=== PATIENT | female | born 2005 | race Caucasian/White ===

== ENCOUNTER 2023-04-17 23:31 | Emergency (ER) | payer SELFPAY ==
[2023-04-17] VITALS (8 sets, daily range): BP systolic 134–142; BP diastolic 58–81; PULSE 80–100; RESP 17–19; TEMP 36.4; O2SAT 98
--- NOTE | 2023-04-17 23:00 | RT.EKG_ITS ---
APPROVED REPORT Exam: Resting ECG Reason for Exam: syncopal episode Patient Location: E HR:81 bpm ECG Measurements Heart Rate 81 AXIS VT 135 P 14 QRSd 78 QRS 68 QT 360 T 13 QTc 417 Conclusion Sinus rhythm... V-rate 60- 99 No indication of Brugada, long QT, WpW, HOCM, or ARVD.
--- NOTE | 2023-04-17 23:26 | ED.GENADUL_ITS ---
HPI General Mode of arrival: EMS . Date/Time Provider Initiated Documentation: 04/17/23 23:33 . Limitations to Documentation: no limitations . Information obtained by: patient and family . HPI Narrative: 17yo previously healthy female presenting for nausea, vomiting, and syncope. [place] normal this morning. This evening at the gym was swimming in a cold pool and then got in the hot tub; began to feel nauseated and unwell like she was going to pass out. Sat on the toilet fully dressed; thinks she may have lost conciousness then. Did not fall or strike her head. After this she and her fiancee went to [place]; while in the car she again felt nauseated and unwell, vomited (non-bloody non bilious), and then passed out. This was witnessed by her fiancee; she was out for less than a minute. No abnormal movements noted. Was alert and acting normal when she regained consciousness. Patient reports feeling some shortness of breath when she regained consciousness, none currently. She is otherwise in her usual state of health with no fevers, chills, rash, abdominal pain, diarrhea, numbness, focal weakness, tingling, dysuria, hematuria, flank pain, back pain, or other concern s. Related Data Home Medications Medication Instructions Recorded Confirmed bisacodyl 5 mg tablet,delayed 5 mg PO DAILY #30 tab-caps 01/21/17 04/18/23 release (Dulcolax (bisacodyl)) polyethylene glycol 3350 17 17 gm PO BID #255 grams 01/21/17 04/18/23 gram/dose oral powder ondansetron HCl 4 mg tablet 4 mg PO Q8H PRN #10 tabs 04/18/23 Previous Rx's Medication Instructions Recorded bisacodyl 5 mg tablet,delayed 5 mg PO DAILY #30 tab-caps 01/21/17 release (Dulcolax (bisacodyl)) polyethylene glycol 3350 17 17 gm PO BID #255 grams 01/21/17 gram/dose oral powder ondansetron HCl 4 mg tablet 4 mg PO Q8H PRN #10 tabs 04/18/23 Allergies Allergy/AdvReac Type Severity Reaction Status Date / Time strawberry Allergy Unknown Hives Unverified 04/18/23 02:43 General Stated Complaint: GenMedical YAMINI: 3 Review of Systems Narrative: see HPI Exam Narrative Exam Narrative: General: Alert, well appearing, well nourished, in no acute distress. Head: Normocephalic, atraumatic Neck: Trachea midline, ?Neck supple. ENT: ?MMM.? Cardiac: ?RRR, no murmurs appreciated Resp: No respiratory distress. CTAB. Abd: ?Soft, non-distended, nontender : ?No suprapubic tenderness. Extremities: ?No deformities.? No peripheral edema. Neurologic: GCS 15. ? Motor- 5/5 strength symmetric bilateral upper and lower extremities Sensation- ?Intact to light touch and symmetric multiple dermatomes including upper and lower extremities Coordination- No dysmetria on finger to nose Gait/station: ?Normal stance.? No truncal ataxia. Steady gait with equal normal steps Course Vital Signs Vital signs: Vital Signs Temperature 36.4 C L 04/17/23 23:17 Pulse 98 H 04/17/23 23:17 Respiratory Rate 18 04/17/23 23:17 Blood Pressure 142/58 H 04/17/23 23:17 Pulse Oximetry 98 04/17/23 23:17 Temperature 36.4 C L 04/17/23 23:17 Pulse 98 H 04/17/23 23:17 Respiratory Rate 18 04/17/23 23:21 Respiratory Effort Normal, Short of Breath 04/17/23 23:21 Blood Pressure 142/58 H 04/17/23 23:17 Pulse Oximetry 98 04/17/23 23:17 Oxygen Delivery Method Room Air 04/17/23 23:17 Oxygen Flow Rate 0 04/17/23 23:17 Pain Level 4 04/17/23 23:17 Medical Decision Making 17yo previously healthy female presenting for nausea, vomiting, and syncope. History from patient, fiancee at bedside, and EMS. Symptoms started this ju[place] after transferring from cold pool to hot tub; felt nauseated and then may have passed out while sitting on the toilet. Had a second episode shortly after, went to [facility] and then felt unwell in the car, vomited, and lost consciousness for ~ 1 minute. No abnormal movements to suggest seizure, was not post-ictal upon regaining consciousness. Normal blood glucose and vital signs for EMS. Reassuring vital signs on arrival, normal physical exam. No abdominal tenderness to suggest obstruction or surgical intraabdominal process; would not get CT imaging. orthostatic vital signs normal. Given zofran, 1L IVFB. -EKG NSR, no indication of Brugada, long QT, HOCM, or ARVD. No short IA or widened QRS to suggest WpW, no clear delta wave. No family history of sudden unexpected at a young age. -CXR independently reviewed, no focal pneumonia or pneumothorax on my view, agree with radiology read below. -Labs reviewed as below CBC with leukocytosis to 15, and no anemia, CMP with no electrolyte abnormalities, d-dimer normal (would not further pursue pulmonary embolism with CT imaging), negative. UA not infected. Troponin negative x 2. On reassessment she remains non-toxic appearing with reassuring vital signs. Slightly low blood pressure (90's/70's)) while sleeping, not concerning. PO challenged and tolerate well with no further vomiting. Ambulated steadily independently in the department. Reports feeling much better, just tired. Unclear precipitant of symptoms but with reassuring workup here unlikely to be serious cardiac/cardiovascular/neurologic pathology. Will discharge with short of course of zofrran for the event this is acute gastroenteritis. Appropriate for PCP followup; will defer decisions regarding further testing or cardiology referral to PCP. Discharged home; discharge instructions and return precautions were reviewed with patient who verbalized understanding. All questions were answered and she is in full agreement with the plan. Imaging Data Radiologic Study: Imaging: X-Ray Radiologist's impression: IMPRESSION: No acute findings. Lab Data Lab results reviewed: Yes I reviewed the patient's lab results. Labs: Laboratory Tests Range/Units 04/17/23 04/18/23 04/18/23 23:40 00:44 02:35 WBC (4.4-10.8) 10^3/uL 15.58 H RBC (3.93-5.22) 10^6/uL 5.14 Hgb (11.2-15.7) g/dL 12.4 Hct (36.0-46.0) % 38.7 MCV (80-95) fL 75 L MCH (27.0-33.0) pg 24.1 L MCHC (32.0-36.0) % 32.0 RDW (11.7-14.6) % 14.5 Plt Count (130-400) 10^3/uL 476 H MPV (8.0-11.0) fL 8.7 Immature Gran % 0.3 Neutrophils % 76.0 Lymphocytes % 17.2 Monocytes % 6.0 Eosinophils % 0.2 Basophils % 0.3 Nucleated RBC % (0.0-0.3) % 0.0 Absolute Neutrophils (1.2-6.7) 10^3/uL 11.84 H Absolute Lymphocytes (1.2-3.4) 10^3/uL 2.68 Absolute Monocytes (0.1-0.8) 10^3/uL 0.93 H Absolute Eosinophils (0.0-0.7) 10^3/uL 0.03 Absolute Basophils (0.0-0.2) 10^3/uL 0.05 D-Dimer (<500) ng/mlFEU 326 Sodium (136-145) mmol/L 139 Potassium (3.5-5.1) mmol/L 3.8 Chloride (98-107) mmol/L 104 Carbon Dioxide (21.0-32.0) mmol/L 24.2 Anion Gap (3-11) mmol/L 10.8 BUN (7-18) mg/dL 12 Creatinine (0.55-1.02) mg/dL 0.8 Est GFR (CKD-EPI 2020) (mL/min/1.73m2) 108.78 Glucose (74-106) mg/dL 116 H Calcium (8.5-10.1) mg/dL 9.5 Magnesium (1.8-2.4) mg/dL 1.9 Total Bilirubin (0.2-1.0) mg/dL 0.3 AST (15-37) U/L 13 L ALT (14-59) U/L 21 Alkaline Phosphatase (46-116) U/L 75 Troponin I (< or =60) ng/L < 50 < 50 Total Protein (6.4-8.2) g/dL 8.2 Albumin (3.4-5.0) g/dL 3.4 Beta HCG, Quant (1-3) mIU/mL < 1 L Urine Color (Yellow) Yellow Urine Clarity (Clear) Sl Cloudy Urine pH (5-8) 6.0 Ur Specific [place] (1.005-1.025) >= 1.030 H Urine Protein (Negative) mg/dL Negative Urine Ketones (Negative) mg/dL Negative Urine Blood (Negative) Negative Urine Nitrite (Negative) Negative Urine Bilirubin (Negative) Negative Urine Urobilinogen (Up to 0.2) mg/dL 1.0 H Ur Leukocyte Esterase (Negative) Negative Urine Glucose (Negative) mg/dL Negative Quality:SDOH Health Related Social Needs: No Data to Display PFSH All Active Problems (Updated 04/18/23 @ 02:32 by Azul Yancey MD) Syncope (Chronic) Encoporesis (Active) Constipation (Active 08/15/12) Social History Smoking/Tobacco Use Status: Never Smoking risk assessment performed?: Yes Drug use: Never Substance use type: does not use Do you feel safe at home: Yes Do you feel safe in your relationship?: Yes Discharge Plan Disposition Patient Disposition: Home Condition: Good Discharge Details Clinical Impression: Syncope Primary Care Provider: Unknown,Unknown ED Provider: Azul Yancey Home Meds and New Rx's Prescriptions: New ondansetron HCl 4 mg tablet 4 mg PO Q8H PRNQty: 10 0RF Continued bisacodyl [Dulcolax (bisacodyl)] 5 MG tablet,delayed release (DR/EC) 5 mg PO DAILY Qty: 30 2RF Rx Instructions: take 1 tab PO daily after school polyethylene glycol 3350 255 GM powder 17 gm PO BID Qty: 255 4RF Rx Instructions: mix 1 cap in 6-8 oz of fluid and take PO BID Discharge Instructions Instructions: Syncope (ED) Additional Instructions: You can take zofran as needed for nausea; follow the directions on the bottle. Call your primary care doctor today to schedule an appointment within the next 48 hours to followup on your visit today. Return to the emergency department for new or worsening symptoms including inability to keep down fluids, chest pain, difficultly breathing, or if you pass out again.
--- NOTE | 2023-04-17 23:30 | DI.RAD_ITS ---
Exam(s) XR CHEST 2V PA LATERAL EXAM: XR CHEST 2V PA LATERAL CLINICAL HISTORY: chest pain. TECHNIQUE: 2D digital imaging was performed. COMPARISON: CR CHEST 2 VIEWS PA,LAT from 01/22/2017 FINDINGS: 2 views: Heart size is normal. The mediastinum is not widened. Lungs are clear. No infiltrates nor pleural effusions. IMPRESSION: No acute pulmonary findings. DATA REPOSITORY: RADIATION DOSE DELIVERED:
[2023-04-17 23:50] LABS: Abs Immature Grans 0.04 10^3/uL (0.0-0.06); Absolute Eosinophil Count 0.03 10^3/uL (0.0-0.7); Absolute Lymphocyte Count 2.68 10^3/uL (1.2-3.4); Absolute Monocyte Count 0.93 10^3/uL (0.1-0.8); Basophils % 0.3; Eosinophils % 0.2; HCT 38.7 % (36.0-46.0); HGB 12.4 g/dL (11.2-15.7); Immature Grans % 0.3; Lymphocytes % 17.2; MCH 24.1 pg (27.0-33.0); MCV 75 fL (80-95); MPV 8.7 fL (8.0-11.0); Platelet Count 476 10^3/uL (130-400); RBC 5.14 10^6/uL (3.93-5.22); RDW 14.5 % (11.7-14.6); RDW-SD 38.8 fL; WBC 15.58 10^3/uL (4.4-10.8)
[2023-04-17 23:51] LABS: Absolute Basophil Count 0.05 10^3/uL (0.0-0.2); Absolute Neutrophil Count 11.84 10^3/uL (1.2-6.7)
[2023-04-18] VITALS (28 sets, daily range): BP systolic 97–157; BP diastolic 57–93; PULSE 77–104; RESP 1–28; TEMP 36.4; O2SAT 98
[2023-04-18] MEDS: Ondansetron 4 MG/2 ML VIAL IVP (00:05)
[2023-04-18] MEDS: Normal Saline 1,000 ML 1000 ML IV (00:05)
--- NOTE | 2023-04-18 00:11 | DI.VRAD_ITS ---
PROCEDURE INFORMATION: Exam: XR Chest Exam date and time: 04/17/2023 11:48 PM Age: 17 years old Clinical indication: Chest wall pain TECHNIQUE: Imaging protocol: Radiologic exam of the chest. Views: 2 views. COMPARISON: CR CHEST 2 VIEWS PA,LAT 01/22/2017 12:59 AM FINDINGS: Lungs: Unremarkable. No consolidation. Pleural spaces: Unremarkable. No pleural effusion. No pneumothorax. Heart/Mediastinum: Unremarkable. No cardiomegaly. Bones/joints: Unremarkable. IMPRESSION: No acute findings. Dictated and Authenticated by: Jam Smith MD. Ordering:OLU Liang MD
[2023-04-18 00:40] LABS: ALT 21 U/L (14-59); AST 13 U/L (15-37); Albumin 3.4 g/dL (3.4-5.0); Alkaline Phosphatase 75 U/L (46-116); Anion Gap 10.8 mmol/L (3-11); BUN 12 mg/dL (7-18); Bilirubin, Total 0.3 mg/dL (0.2-1.0); CO2 24.2 mmol/L (21.0-32.0); CREATININE 0.8 mg/dL (0.55-1.02); Calcium 9.5 mg/dL (8.5-10.1); Chloride 104 mmol/L (98-107); Estimated GFR 108.78 (mL/min/1.73m2); Glucose 116 mg/dL (74-106); Magnesium 1.9 mg/dL (1.8-2.4); Potassium 3.8 mmol/L (3.5-5.1); Sodium 139 mmol/L (136-145); Total Protein 8.2 g/dL (6.4-8.2)
[2023-04-18 00:41] LABS: Troponin I < 50 ng/L (< or =60)
[2023-04-18 00:44] LABS: HCG Quant, Pregnancy < 1 mIU/mL (1-3)
[2023-04-18 00:51] LABS: Bilirubin Negative (Negative); Blood Negative (Negative); Clarity Sl Cloudy (Clear); Glucose Negative (Negative); Ketones Negative (Negative); Leukocyte Esterase Negative (Negative); Nitrite Negative (Negative); Specific Gravity >= 1.030 (1.005-1.025)
[2023-04-18 00:54] LABS: D-Dimer 326 ng/mlFEU (<500)
[2023-04-18 02:58] LABS: Troponin I < 50 ng/L (< or =60)
== END 2023-04-18 03:23 | disposition home or self-care (01) ==
LOC: ER 04-18 03:35
PROVIDERS: Emergency Provider Student in an Organized Health Care Education/Training Program
DX: R11.2 Nausea with vomiting, unspecified (principal); R55 Syncope and collapse; R94.31 Abnormal electrocardiogram [ECG] [EKG]
CPT/HCPCS: 80053; 82962; 93005; 96361; 96374; 99285; 71046; 81003; 83735; 84484; 84702; 85025; 85379; 93010; 99284; J2405

== ENCOUNTER 2023-05-05 01:14 | Emergency (ER) | payer SELFPAY ==
[2023-05-05 01:22] VITALS: BP 128/66; PULSE 100; RESP 16; TEMP 36.8; O2SAT 97
[2023-05-05 01:49] LABS: Lactate 2.7 mmol/L (0.6-1.4)
[2023-05-05] MEDS: Normal Saline 1,000 ML 1000 ML IV (02:00)
[2023-05-05] MEDS: Ondansetron 4 MG/2 ML VIAL IVP (02:00)
[2023-05-05 02:03] LABS: Abs Immature Grans 0.07 10^3/uL (0.0-0.06); Absolute Eosinophil Count 0.04 10^3/uL (0.0-0.7); Absolute Lymphocyte Count 1.12 10^3/uL (1.2-3.4); Absolute Monocyte Count 0.84 10^3/uL (0.1-0.8); Basophils % 0.2; Eosinophils % 0.2; HCT 41.7 % (36.0-46.0); HGB 13.6 g/dL (11.2-15.7); Immature Grans % 0.4; Lymphocytes % 6.1; MCH 24.5 pg (27.0-33.0); MCHC 32.6 % (32.0-36.0); MCV 75 fL (80-95); MPV 9.1 fL (8.0-11.0); Monocytes % 4.6; Neutrophils % 88.5; Platelet Count 532 10^3/uL (130-400); RBC 5.56 10^6/uL (3.93-5.22); RDW 14.6 % (11.7-14.6); RDW-SD 39.8 fL; WBC 18.34 10^3/uL (4.4-10.8)
[2023-05-05 02:05] LABS: ALT 18 U/L (14-59); AST 11 U/L (15-37); Albumin 3.7 g/dL (3.4-5.0); Alkaline Phosphatase 80 U/L (46-116); Anion Gap 13.6 mmol/L (3-11); BUN 17 mg/dL (7-18); Bilirubin, Total 0.5 mg/dL (0.2-1.0); CO2 22.4 mmol/L (21.0-32.0); CREATININE 1.1 mg/dL (0.55-1.02); Calcium 9.4 mg/dL (8.5-10.1); Chloride 104 mmol/L (98-107); Estimated GFR 74.23 (mL/min/1.73m2); Glucose 152 mg/dL (74-106); Lipase 22 U/L (16-77); Potassium 4.4 mmol/L (3.5-5.1); Sodium 140 mmol/L (136-145); Total Protein 8.4 g/dL (6.4-8.2)
[2023-05-05 02:07] LABS: Absolute Basophil Count 0.04 10^3/uL (0.0-0.2); Absolute Neutrophil Count 16.23 10^3/uL (1.2-6.7)
[2023-05-05 02:22] LABS: Influenza A PCR Negative (Negative); Influenza B PCR Negative (Negative); RSV PCR Negative (Negative)
[2023-05-05 02:35] LABS: Source Nasopharynx
[2023-05-05 02:36] LABS: COVID-19 PCR Positive (Negative)
--- NOTE | 2023-05-05 02:42 | ED.GENADUL_ITS ---
HPI General Mode of arrival: EMS . Date/Time Provider Initiated Documentation: 05/05/23 01:20 . Limitations to Documentation: no limitations . Information obtained by: patient . HPI Narrative: 17yo previously healthy female presenting for cough, nausea, and vomiting. Symptoms started today around 1pm. Frequent non-bloody nonbilious emesis. Is keeping down some fluids. No abdominal pain. No dysuria or hematuria. Intermittent mild cough, also has nasal congestion. No chest pain or shortness of breath. Reports occasional chills. Boyfriend with similar symptoms. She is otherwise in her usual state of health with no fevers,rash, or other concerns. Related Data Home Medications Medication Instructions Recorded Confirmed bisacodyl 5 mg tablet,delayed 5 mg PO DAILY #30 tab-caps 01/21/17 04/18/23 release (Dulcolax (bisacodyl)) polyethylene glycol 3350 17 17 gm PO BID #255 grams 01/21/17 04/18/23 gram/dose oral powder ondansetron HCl 4 mg tablet 4 mg PO Q8H PRN #10 tabs 04/18/23 ondansetron HCl 4 mg tablet 4 mg PO Q8H #10 tabs 05/05/23 Previous Rx's Medication Instructions Recorded bisacodyl 5 mg tablet,delayed 5 mg PO DAILY #30 tab-caps 01/21/17 release (Dulcolax (bisacodyl)) polyethylene glycol 3350 17 17 gm PO BID #255 grams 01/21/17 gram/dose oral powder ondansetron HCl 4 mg tablet 4 mg PO Q8H PRN #10 tabs 04/18/23 ondansetron HCl 4 mg tablet 4 mg PO Q8H #10 tabs 05/05/23 Allergies Allergy/AdvReac Type Severity Reaction Status Date / Time strawberry Allergy Unknown Hives Unverified 04/18/23 02:43 General Stated Complaint: Nausea/Vomit/Diar YAMINI: 5 Review of Systems Narrative: see HPI Exam Narrative Exam Narrative: General: Alert, well appearing, well nourished, in no acute distress. Head: Normocephalic, atraumatic Neck: Trachea midline, ?Neck supple. ENT: ?MMM.? Cardiac: ?RRR, no murmurs appreciated Resp: No respiratory distress. CTAB. Abd: ?Soft, non-distended, nontender : ?No suprapubic tenderness. No CVA tenderness. Extremities: ?No deformities.? No peripheral edema. Neurologic: GCS 15. ? Moves all extremities freely against gravity Course Vital Signs Vital signs: Vital Signs Temperature 36.8 C 05/05/23 01:22 Pulse 100 H 05/05/23 01:22 Respiratory Rate 16 05/05/23 01:22 Blood Pressure 128/66 05/05/23 01:22 Pulse Oximetry 97 05/05/23 01:22 Temperature 36.8 C 05/05/23 01:22 Temperature Source Oral 05/05/23 01:22 Pulse 100 H 05/05/23 01:22 Respiratory Rate 16 05/05/23 01:22 Respiratory Effort Normal 05/05/23 01:25 Blood Pressure 128/66 05/05/23 01:22 Blood Pressure Position Sitting 05/05/23 01:22 Pulse Oximetry 97 05/05/23 01:22 Oxygen Delivery Method Room Air 05/05/23 01:22 Oxygen Flow Rate 0 05/05/23 01:22 Pain Level 5 05/05/23 01:22 Lab/Test Results Lab/Test Results: Laboratory Tests Range/Units 05/05/23 01:40 WBC (4.4-10.8) 10^3/uL 18.34 H RBC (3.93-5.22) 10^6/uL 5.56 H Hgb (11.2-15.7) g/dL 13.6 Hct (36.0-46.0) % 41.7 MCV (80-95) fL 75 L MCH (27.0-33.0) pg 24.5 L MCHC (32.0-36.0) % 32.6 RDW (11.7-14.6) % 14.6 Plt Count (130-400) 10^3/uL 532 H MPV (8.0-11.0) fL 9.1 Immature Gran % 0.4 Neutrophils % 88.5 Lymphocytes % 6.1 Monocytes % 4.6 Eosinophils % 0.2 Basophils % 0.2 Nucleated RBC % (0.0-0.3) % 0.0 Absolute Neutrophils (1.2-6.7) 10^3/uL 16.23 H Absolute Lymphocytes (1.2-3.4) 10^3/uL 1.12 L Absolute Monocytes (0.1-0.8) 10^3/uL 0.84 H Absolute Eosinophils (0.0-0.7) 10^3/uL 0.04 Absolute Basophils (0.0-0.2) 10^3/uL 0.04 VBG Lactate (0.6-1.4) mmol/L 2.7 H* Sodium (136-145) mmol/L 140 Potassium (3.5-5.1) mmol/L 4.4 Chloride (98-107) mmol/L 104 Carbon Dioxide (21.0-32.0) mmol/L 22.4 Anion Gap (3-11) mmol/L 13.6 H BUN (7-18) mg/dL 17 Creatinine (0.55-1.02) mg/dL 1.1 H Est GFR (CKD-EPI 2020) (mL/min/1.73m2) 74.23 Glucose (74-106) mg/dL 152 H Calcium (8.5-10.1) mg/dL 9.4 Total Bilirubin (0.2-1.0) mg/dL 0.5 AST (15-37) U/L 11 L ALT (14-59) U/L 18 Alkaline Phosphatase (46-116) U/L 80 Total Protein (6.4-8.2) g/dL 8.4 H Albumin (3.4-5.0) g/dL 3.7 Lipase (16-77) U/L 22 COVID-19 Source Nasopharynx SARS-CoV-2 (PCR) (Negative) Positive A Influenza Type A (PCR) (Negative) Negative Influenza Type B (PCR) (Negative) Negative RSV (PCR) (Negative) Negative Medical Decision Making 17yo previously healthy female presenting for cough, nausea, and vomiting since 1pm. No fevers, abdominal pain, or urinary symptoms. Borderline tachycardia to 100 on arrival, vital signs otherwise reassuring. No respiratory distress or abdominal tenderness. Would not pursue chest or abdomen imaging. No hypoxia, chest pain, pleuritic pain, or shortness of breath to suggest pulmonary emboli sm; would not pursue further. Most likely viral illness. Will give IVF, treat with zofran. Labs reviewed as below, CBC with leukocytosis to 18, CMP with no actionable abnormalities, lactate elevated at 2.7. Respiratory viral swab positive for COVID which is consistent with her symptoms. Unlikely bacterial infection or pneumonia given clear viral source; would not treat for sepsis. No significant risk factors, does not qualify for paxlovid. Repeat lactate improved at 1.6, repeat vital signs reassuring with normal heart rate. PO challenged and tolerated well. On reassessment she remains well appearing with no respiratory distress. Discharged home with radha, advised symptomatic treatment at home. Discharge instructions and return precautions were reviewed with patient who verbalized understanding. All questions were answered and she is in full agreement with the plan. Lab Data Lab results reviewed: Yes I reviewed the patient's lab results. Labs: Laboratory Tests Range/Units 05/05/23 05/05/23 01:40 03:18 WBC (4.4-10.8) 10^3/uL 18.34 H RBC (3.93-5.22) 10^6/uL 5.56 H Hgb (11.2-15.7) g/dL 13.6 Hct (36.0-46.0) % 41.7 MCV (80-95) fL 75 L MCH (27.0-33.0) pg 24.5 L MCHC (32.0-36.0) % 32.6 RDW (11.7-14.6) % 14.6 Plt Count (130-400) 10^3/uL 532 H MPV (8.0-11.0) fL 9.1 Immature Gran % 0.4 Neutrophils % 88.5 Lymphocytes % 6.1 Monocytes % 4.6 Eosinophils % 0.2 Basophils % 0.2 Nucleated RBC % (0.0-0.3) % 0.0 Absolute Neutrophils (1.2-6.7) 10^3/uL 16.23 H Absolute Lymphocytes (1.2-3.4) 10^3/uL 1.12 L Absolute Monocytes (0.1-0.8) 10^3/uL 0.84 H Absolute Eosinophils (0.0-0.7) 10^3/uL 0.04 Absolute Basophils (0.0-0.2) 10^3/uL 0.04 VBG Lactate (0.6-1.4) mmol/L 2.7 H* 1.6 H Sodium (136-145) mmol/L 140 Potassium (3.5-5.1) mmol/L 4.4 Chloride (98-107) mmol/L 104 Carbon Dioxide (21.0-32.0) mmol/L 22.4 Anion Gap (3-11) mmol/L 13.6 H BUN (7-18) mg/dL 17 Creatinine (0.55-1.02) mg/dL 1.1 H Est GFR (CKD-EPI 2020) (mL/min/1.73m2) 74.23 Glucose (74-106) mg/dL 152 H Calcium (8.5-10.1) mg/dL 9.4 Total Bilirubin (0.2-1.0) mg/dL 0.5 AST (15-37) U/L 11 L ALT (14-59) U/L 18 Alkaline Phosphatase (46-116) U/L 80 Total Protein (6.4-8.2) g/dL 8.4 H Albumin (3.4-5.0) g/dL 3.7 Lipase (16-77) U/L 22 COVID-19 Source Nasopharynx SARS-CoV-2 (PCR) (Negative) Positive A Influenza Type A (PCR) (Negative) Negative Influenza Type B (PCR) (Negative) Negative RSV (PCR) (Negative) Negative Quality:SDOH Health Related Social Needs: No Data to Display PFSH All Active Problems (Updated 05/05/23 @ 03:16 by Azul Yancey MD) COVID-19 (Acute) Syncope (Chronic) Encoporesis (Active) Constipation (Active 08/15/12) Social History Smoking/Tobacco Use Status: Never Smoking risk assessment performed?: Yes Drug use: Never Substance use type: does not use Do you feel safe at home: Yes Do you feel safe in your relationship?: Yes Discharge Plan Disposition Patient Disposition: Home Condition: Good Discharge Details Clinical Impression: COVID-19 Primary Care Provider: None,None ED Provider: Azul Yancey Home Meds and New Rx's Prescriptions: New ondansetron HCl 4 mg tablet 4 mg PO Q8H Qty: 10 0RF Continued bisacodyl [Dulcolax (bisacodyl)] 5 MG tablet,delayed release (DR/EC) 5 mg PO DAILY Qty: 30 2RF Rx Instructions: take 1 tab PO daily after school polyethylene glycol 3350 255 GM powder 17 gm PO BID Qty: 255 4RF Rx Instructions: mix 1 cap in 6-8 oz of fluid and take PO BID ondansetron HCl 4 mg tablet 4 mg PO Q8H PRNQty: 10 0RF Discharge Instructions Instructions: COVID-19 (Coronavirus Disease 2019) (ED) Additional Instructions: Zofran up to every 8 hours for vomiting. Tylenol and ibuprofen over the counter for fever or muscle aches; follow the directions on the bottle. Return to the emergency department for new or worsening symptoms including dif ficulty breathing, chest pain, feeling like you are going to pass out, inability to keep down fluids, or if you have any other concerns.
[2023-05-05 03:21] VITALS: BP 128/72; PULSE 92; RESP 16; TEMP 37; O2SAT 99
[2023-05-05 03:21] LABS: Lactate 1.6 mmol/L (0.6-1.4)
== END 2023-05-05 04:20 | disposition home or self-care (01) ==
PROVIDERS: Emergency Provider Student in an Organized Health Care Education/Training Program
DX: U07.1 COVID-19 (principal)
CPT/HCPCS: 36415; 80053; 83690; 87637; 96361; 96374; 99283; 83605; 85025; J2405

== ENCOUNTER 2024-04-05 19:44 | Emergency (ER) | payer MEDICARE, MEDICAID, SELFPAY ==
[2024-04-05 19:46] VITALS: BP 132/78; PULSE 102; RESP 18; TEMP 35.7; O2SAT 99
[2024-04-05 19:51] VITALS: BP 132/78; PULSE 102; RESP 18; TEMP 35.7; O2SAT 99
--- NOTE | 2024-04-05 20:00 | DI.CT_ITS ---
Exam(s) CT HEAD WO EXAM: CT HEAD WO CLINICAL HISTORY: headache, new onset. TECHNIQUE: Imaging Protocol: Axial computed tomography images with coronal and sagittal reformatted images were created and reviewed COMPARISON: CT HEAD AND CSPINE W/O CONTRAST from 01/22/2017 FINDINGS: There are no skull fractures. There is no fluid in the visualized paranasal sinuses. There is no evidence of intracranial hemorrhage, mass effect, or shift of midline structures. There are no extra-axial fluid collections. The ventricles are not enlarged or shifted and there is no blo od within the ventricular system nor within the basal cisterns. IMPRESSION: No acute intracranial findings on this noninfused CT scan of the brain. RADIATION DOSE DELIVERED: 797.53mGy.cm Total DLP DATA REPOSITORY: All CT scans at this facility are submitted to the National Radiology Data Registry (NRDR) Dose Index Registry (DIR) with the [employer] ([employer]). RADIATION OPTIMIZATION: All CT scans at this facility use at least one of these dose optimization te chniques: automated exposure control; mA and/or kV adjustment per patient size (includes targeted exa ms where dose is matched to clinical indication); or iterative reconstruction.
--- NOTE | 2024-04-05 20:13 | ED.GENADUL_ITS ---
Discharge Plan Disposition Patient Disposition: Home Condition: Stable Discharge Details Clinical Impression: Headache Primary Care Provider: None,None ED Provider: Floresita Benitez Home Meds and New Rx's Prescriptions: New prochlorperazine maleate [Compazine] 10 mg tablet 10 mg PO Q6H PRNQty: 10 0RF Continued ondansetron HCl 4 mg tablet 4 mg PO Q8H PRNQty: 10 0RF ondansetron HCl 4 mg tablet 4 mg PO Q8H Qty: 10 0RF hydrochlorothiazide 12.5 mg tablet 12.5 mg PO DAILY Patient Comments: TAKE 1 TABLET BY MOUTH DAILY IN THE MORNING pantoprazole 40 mg tablet,delayed release (DR/EC) 40 mg PO DAILY Patient Comments: TAKE 1 TABLET BY MOUTH ONCE DAILY FOR 30 DAYS Slow Fe 137 mg (45 mg iron) tablet extended release 137 mg PO DAILY Patient Comments: TAKE 1 TABLET BY MOUTH DAILY Discharge Instructions Instructions: Headache, Adult ED Additional Instructions: Take ibuprofen and Tylenol as needed for pain, I have also given Compazine for headache and nausea Please return earlier should you have new or worsening complaints including persistent or worsening headache or fever or chills, rest, regular fluids Discharge Data Discharge Date/Time-TO BE ENTERED AT DEPARTURE: 04/05/24 23:01 HPI General Date/Time Provider Initiated Documentation: 04/05/24 19:53 . HPI Narrative: This 18-year-old female with history of hypertension and heartburn presents with report of headache that started around 12:00 today. She denies taking any medications. She denies history of similar symptoms in the past. She denies any chance of . Denies stiff neck. States the pressure worsens when she bends over. Denies any new sick contacts. Related Data Home Medications ?Medication ?Instructions ?Recorded ?Confirmed ondansetron HCl 4 mg tablet 4 mg PO Q8H PRN #10 tabs 04/18/23 04/05/24 ondansetron HCl 4 mg tablet 4 mg PO Q8H #10 tabs 05/05/23 04/05/24 ferrous sulfate 137 mg (45 mg 137 mg PO DAILY 04/05/24 04/05/24 iron) tablet,extended release (Slow Fe) hydrochlorothiazide 12.5 mg tablet 12.5 mg PO DAILY 04/05/24 04/05/24 pantoprazole 40 mg tablet,delayed 40 mg PO DAILY 04/05/24 04/05/24 release prochlorperazine maleate 10 mg 10 mg PO Q6H PRN #10 tabs 04/05/24 tablet (Compazine) Previous Rx's ?Medication ?Instructions ?Recorded ondansetron HCl 4 mg tablet 4 mg PO Q8H PRN #10 tabs 04/18/23 ondansetron HCl 4 mg tablet 4 mg PO Q8H #10 tabs 05/05/23 prochlorperazine maleate 10 mg 10 mg PO Q6H PRN #10 tabs 04/05/24 tablet (Compazine) Allergies Allergy/AdvReac Type Severity Reaction Status Date / Time Penicillins Allergy Mild Hives Verified 04/05/24 19:52 strawberry Allergy Unknown Hives Unverified 04/05/24 19:52 General Stated Complaint: GenMedical YAMINI: 3 Exam Narrative Exam Narrative: Alert and oriented 18-year-old female, no acute distress, pupils equal round re active to light and accommodation, no meningismus, lungs clear to auscultation, cardiac rate rhythm regular, no abdominal tenderness, no rashes or lesions, alert and oriented x 4, cranial nerves II through 12 Course Vital Signs Vital signs: Vital Signs Temperature 35.7 C L 04/05/24 19:46 Pulse 102 H 04/05/24 19:46 Respiratory Rate 18 04/05/24 19:46 Blood Pressure 132/78 04/05/24 19:46 Pulse Oximetry 99 04/05/24 19:46 Temperature 35.7 C L 04/05/24 19:51 Pulse 102 H 04/05/24 19:51 Respiratory Rate 18 04/05/24 19:51 Blood Pressure 132/78 04/05/24 19:51 Blood Pressure Position Sitting 04/05/24 19:51 Pulse Oximetry 99 04/05/24 19:51 Oxygen Delivery Method Room Air 04/05/24 19:51 Oxygen Flow Rate 0 04/05/24 19:51 Pain Level 7 04/05/24 19:51 Medical Decision Making 18-year-old female presenting in no acute distress, and CT was ordered as new onset headache, does not show any abnormalities per radiology interpretation and my review. Diagnostic labs are reassuring and patient feels marked improvement after typical migraine medications. Mild leukocytosis at 12,000, no evidence of bacterial source of symptoms., Flu, COVID, RSV negative. Return precautions reviewed and patient expressed understanding Quality:SDOH Health Related Social Needs: No Data to Display PFSH All Active Problems (Updated 04/05/24 @ 22:38 by HALIMA Farrell) Headache (Acute) COVID-19 (Acute) Encoporesis (Active) Constipation (Active 08/15/12) Social History Smoking/Tobacco Use Status: Never Smoking risk assessment performed?: Yes Alcohol Intake: never Drug use: Never Substance use type: does not use Housing: apartment Do you feel safe at home: Yes Do you feel safe in your relationship?: Yes
[2024-04-05 20:30] VITALS: RESP 18
[2024-04-05] MEDS: ACETAMINOPHEN 1,000 MG/100 ML BAG 400 MG IVPB (20:47)
[2024-04-05] MEDS: Normal Saline 1,000 ML 1000 ML IV (20:48)
[2024-04-05] MEDS: Prochlorperazine 10 MG/2 ML VIAL IVP (20:48)
[2024-04-05 20:49] LABS: Abs Immature Grans 0.04 10^3/uL (0.0-0.06); Absolute Monocyte Count 0.56 10^3/uL (0.1-0.8); Absolute Neutrophil Count 9.34 10^3/uL (1.2-6.7); Basophils % 0.2 %; Eosinophils % 0.8 %; HCT 41.3 % (36.0-46.0); HGB 13.2 g/dL (11.2-15.7); Immature Grans % 0.3 %; Lymphocytes % 19.8 %; MCH 24.2 pg (27.0-33.0); MCV 76 fL (80-95); Monocytes % 4.5 %; Neutrophils % 74.4 %; Platelet Count 509 10^3/uL (130-400); RBC 5.45 10^6/uL (3.93-5.22); RDW 14.3 % (11.7-14.6); RDW-SD 38.6 fL; WBC 12.55 10^3/uL (4.4-10.8)
[2024-04-05 20:52] LABS: Absolute Basophil Count 0.03 10^3/uL (0.0-0.2); Absolute Lymphocyte Count 2.48 10^3/uL (1.2-3.4)
[2024-04-05 21:03] LABS: ALT 20 U/L (14-59); AST 25 U/L (15-37); Albumin 3.5 g/dL (3.4-5.0); Alkaline Phosphatase 88 U/L (46-116); Anion Gap 6.6 mmol/L (3-11); BUN 10 mg/dL (7-18); Bilirubin, Total 0.35 mg/dL (0.2-1.0); CO2 28.4 mmol/L (21.0-32.0); CREATININE 0.8 mg/dL (0.55-1.02); Calcium 9.3 mg/dL (8.5-10.1); Chloride 102 mmol/L (98-107); Estimated GFR 108.11 (mL/min/1.73m2); Glucose 136 mg/dL (74-106); Potassium 4.4 mmol/L (3.5-5.1); Sodium 137 mmol/L (136-145); Total Protein 8.5 g/dL (6.4-8.2)
[2024-04-05 21:14] LABS: COVID-19 PCR Negative (Negative); Influenza A PCR Negative (Negative); Influenza B PCR Negative (Negative); RSV PCR Negative (Negative); Source Nasopharynx
[2024-04-05 21:50] LABS: HCG Qual (Serum) Negative
--- NOTE | 2024-04-05 22:12 | DI.VRAD_ITS ---
PROCEDURE INFORMATION: Exam: CT Head Without Contrast Exam date and time: 04/05/2024 9:32 PM Age: 18 years old Clinical indication: Pain; Headache not specified; Patient HX: Headache, head pressure TECHNIQUE: Imaging protocol: Computed tomography of the head without contrast. Radiation optimization: All CT scans at this facility use at least one of these dose optimization techniques: automated exposure control; mA and/or kV adjustment per patient size (includes targeted exams where dose is matched to clinical indication); or iterative reconstruction. COMPARISON: No relevant prior studies available. FINDINGS: Brain: No acute intracranial hemorrhage, mass-effect, midline shift, or extra-axial collection is seen. The luz white matter differentiation appears preserved. Cerebral ventricles: The ventricular system and basilar cisterns appear appropriate in size and configuration. Paranasal sinuses: The visualized paranasal sinuses appear well-aerated. Mastoid air cells: The mastoid air cells appear well-aerated. Auditory system: The middle ear cavities appear clear. Orbital cavities: The globes and intraorbital structures appear grossly intact. Bones: The bony calvarium appears intact. No depressed skull fracture is seen. Soft tissues: No significant scalp lesion is seen. IMPRESSION: No acute intracranial abnormality seen. Dictated and Authenticated by: Dawood Mccloud MD. Ordering:ADINA Canas MD
[2024-04-05 22:50] VITALS: BP 109/75; PULSE 74; TEMP 35.9; O2SAT 97
[2024-04-05 23:01] VITALS: BP 109/75; PULSE 74; RESP 18; TEMP 35.9; O2SAT 97
== END 2024-04-05 23:01 | disposition home or self-care (01) ==
PROVIDERS: Emergency Provider Physician Assistant
DX: R51.9 Headache, unspecified (principal)
CPT/HCPCS: 36415; 80053; 87637; 96361; 96365; 96375; 99284; 70450; 84703; 85025; J0131; J0780

== ENCOUNTER 2024-05-15 20:54 | Outpatient (REF) | payer MEDICARE, MEDICAID, SELFPAY | END 2024-05-15 20:55 | disposition home or self-care (01) | LOC: LBN 20:54 | PROVIDERS: Visit Provider Physician Assistant Medical | DX: J02.9 Acute pharyngitis, unspecified (principal) | CPT/HCPCS: 87070 ==

== ENCOUNTER 2024-05-21 21:38 | Emergency (ER) | payer MEDICARE, MEDICAID, SELFPAY ==
[2024-05-21 21:06] VITALS: BP 132/56; PULSE 82; RESP 16; TEMP 36.4; O2SAT 98
[2024-05-21 21:08] VITALS: BP 132/56; PULSE 82; RESP 16; TEMP 36.4; O2SAT 98
--- NOTE | 2024-05-21 21:43 | W.ED.GENAD ---
Discharge Plan Disposition Patient Disposition: Home Condition: Good Discharge Details Clinical Impression: Upper respiratory virus, Constipation, Nausea & vomiting Primary Care Provider: None,None ED Provider: Génesis Shabazz Home Meds and New Rx's Prescriptions: New polyethylene glycol 3350 [Miralax] 17 gram/dose powder 17 g PO BID Qty: 119 0RF Rx Instructions: Take 1 full capful twice a day and a full 8 ounces of water or juice until you have soft regular stools. You may then decrease to once daily ondansetron 4 mg tablet,disintegrating 4 mg PO Q8H PRNQty: 10 0RF No Action ondansetron HCl 4 mg tablet 4 mg PO Q8H PRNQty: 10 0RF ondansetron HCl 4 mg tablet 4 mg PO Q8H Qty: 10 0RF hydrochlorothiazide 12.5 mg tablet 12.5 mg PO DAILY Patient Comments: TAKE 1 TABLET BY MOUTH DAILY IN THE MORNING pantoprazole 40 mg tablet,delayed release (DR/EC) 40 mg PO DAILY Patient Comments: TAKE 1 TABLET BY MOUTH ONCE DAILY FOR 30 DAYS Slow Fe 137 mg (45 mg iron) tablet extended release 137 mg PO DAILY Patient Comments: TAKE 1 TABLET BY MOUTH DAILY prochlorperazine maleate [Compazine] 10 mg tablet 10 mg PO Q6H PRNQty: 10 0RF Discharge Instructions Additional Instructions: Please establish care with a PCP as discussed. Your symptoms today are most consistent with a viral illness. Please stay well hydrated, drinking plenty of fluids throughout the day. Cough drops may be helpful for sore throat. You may also try salt water gargles. For nausea/vomiting you may use the Zofran tablets provided. Take 1 tablet under the tongue every 8 hours as needed. For constipation I have prescribed you MiraLAX. Take 1 capful in a full 8 ounces of fluid twice daily until you have soft, regular stools. After that you may decrease to once daily. You may use ibuprofen 600 mg every 8 hours and tylenol 650 mg every 8 hours as needed for fever /chills or body aches. Get plenty of rest. Practice good handwashing and wear a mask in public if you are coughing to avoid spreading illness to others. Return to emergency care if you develop difficulty breathing, chest pains, worsening of cough or fever after initial improvement, or if you are very worried and need to be rechecked again immediately. HPI HPI Narrative: Shilpa is a 18 year old female who presents to the emergency department today for evaluation of nausea/vomiting. She reports that she has had viral symptoms including congestion, scratchy throat, and cough for the last week. This has been accompanied by nausea. Tonight she power puked x 1 after dinner. She became concerned because of the forcefulness of her vomiting so she called the ambulance to come to the emergency department. She denies fever/chills, abdominal pain, change in bowel or bladder function. She does have a history of constipation, says her last BM was 1 week ago. She says this is not unusual for her, has taken laxatives in the past but does not currently have a prescription for them. Denies significant revelentpast medical history Physical exam reassuring. Shilpa is alert and oriented, no acute distress. Abdomen soft, nondistended, nontender to palpation with normoactive bowel sounds. Moist mucous membranes. Easy work of breathing, lung sounds clear bilaterally. Normal heart sounds. D/dx includes but is not limited to: Gastritis, food poisoning, GERD, viral illness. No red flags concerning for acute abdominal process, dehydration, or electrolyte imbalance requiring emergent diagnostic imaging or bloodwork at this time. I independently interpreted the following tests: COVID/flu/RSV negative. While in the emergency department, Shilpa received ODT Zofran. She is able to drink cornel tip without difficulty. History and presentation was consistent with viral versus bacterial gastritis, recommend follow-up with PCP. Reviewed discharge instructions with patient, including symptomatic management and red flags indicating need for return to emergency care Related Data Home Medications ?Medication ?Instructions ?Recorded ?Confirmed ondansetron HCl 4 mg tablet 4 mg PO Q8H PRN #10 tabs 04/18/23 05/21/24 ondansetron HCl 4 mg tablet 4 mg PO Q8H #10 tabs 05/05/23 05/21/24 ferrous sulfate 137 mg (45 mg 137 mg PO DAILY 04/05/24 05/21/24 iron) tablet,extended release (Slow Fe) hydrochlorothiazide 12.5 mg tablet 12.5 mg PO DAILY 04/05/24 05/21/24 pantoprazole 40 mg tablet,delayed 40 mg PO DAILY 04/05/24 05/21/24 release prochlorperazine maleate 10 mg 10 mg PO Q6H PRN #10 tabs 04/05/24 05/21/24 tablet (Compazine) ondansetron 4 mg disintegrating 4 mg PO Q8H PRN #10 tabs 05/21/24 tablet polyethylene glycol 3350 17 17 g PO BID #119 grams 05/21/24 gram/dose oral powder (Miralax) Previous Rx's ?Medication ?Instructions ?Recorded ondansetron HCl 4 mg tablet 4 mg PO Q8H PRN #10 tabs 04/18/23 ondansetron HCl 4 mg tablet 4 mg PO Q8H #10 tabs 05/05/23 prochlorperazine maleate 10 mg 10 mg PO Q6H PRN #10 tabs 04/05/24 tablet (Compazine) ondansetron 4 mg disintegrating 4 mg PO Q8H PRN #10 tabs 05/21/24 tablet polyethylene glycol 3350 17 17 g PO BID #119 grams 05/21/24 gram/dose oral powder (Miralax) Allergies Allergy/AdvReac Type Severity Reaction Status Date / Time Penicillins Allergy Mild Hives Verified 04/05/24 19:52 strawberry Allergy Unknown Hives Unverified 04/05/24 19:52 General Stated Complaint: Nausea/Vomit/Diar YAMINI: 4 Review of Systems Narrative: See HPI Exam Const General: cooperative, healthy appearing, comfortable and no acute distress Nutritional Appearance: obese Orientation: alert and oriented x3 HENMT Mouth: moist mucous membranes Resp Effort & Inspection: normal respiratory effort and able to speak in complete sentences Auscultation: clear to auscultation bilaterally Cardio Rate: regular rate Rhythm: regular rhythm GI Inspection: normal to inspection, non-distended and obesity Palpation: soft, not firm and no guarding Auscultation: normal bowel sounds Back/Spine/Pelvis Back: no CVA tenderness Skin General skin exam: no rashes or lesions noted Trauma: no lacerations or abrasions Course Vital Signs Vital signs: Vital Signs Temperature 36.4 C L 05/21/24 21:06 Pulse 82 05/21/24 21:06 Respiratory Rate 16 05/21/24 21:06 Blood Pressure 132/56 L 05/21/24 21:06 Pulse Oximetry 98 03/06/25 21:06 Temperature 36.4 C L 05/21/24 21:08 Pulse 82 05/21/24 21:08 Respiratory Rate 16 05/21/24 21:08 Blood Pressure 132/56 L 05/21/24 21:08 Pulse Oximetry 98 05/21/24 21:08 Oxygen Delivery Method Room Air 05/21/24 21:08 Oxygen Flow Rate 0 05/21/24 21:08 Pain Level 0 05/21/24 21:08 Medical Decision Making Quality:SDOH Health Related Social Needs: No Data to Display PFSH All Active Problems (Updated 05/21/24 @ 21:40 by Génesis Alicea) Nausea & vomiting (Acute) Upper respiratory virus (Acute) COVID-19 (Acute) Encoporesis (Active) Constipation (Acute 08/15/12) Social History Smoking/Tobacco Use Status: Never Smoking risk assessment performed?: Yes Alcohol Intake: never Drug use: Never Substance use type: does not use Housing: apartment Do you feel safe at home: Yes Do you feel safe in your relationship?: Yes
[2024-05-21 22:23] LABS: COVID-19 PCR Negative (Negative); Influenza A PCR Negative (Negative); Influenza B PCR Negative (Negative); RSV PCR Negative (Negative)
[2024-05-21 22:24] LABS: Source Nasopharynx
[2024-05-21] MEDS: Ondansetron O.D.T. 4 MG TABEF PO (22:35)
[2024-05-21 23:06] VITALS: BP 129/86; PULSE 73; TEMP 36.3; O2SAT 99
[2024-05-21] MEDS: Ondansetron O.D.T. 4 MG TABEF, 3 TABS/BTL PO (23:11)
== END 2024-05-21 23:10 | disposition home or self-care (01) ==
PROVIDERS: Emergency Provider Nurse Practitioner Family
DX: J06.9 Acute upper respiratory infection, unspecified (principal); K59.00 Constipation, unspecified; R11.2 Nausea with vomiting, unspecified
CPT/HCPCS: 87637; 99283

== ENCOUNTER 2024-05-29 15:49 | Outpatient (REF) | payer MEDICARE, MEDICAID, SELFPAY ==
[2024-05-29 14:32] LABS: Abs Immature Grans 0.04 10^3/uL (0.0-0.06); Absolute Basophil Count 0.03 10^3/uL (0.0-0.2); Absolute Eosinophil Count 0.04 10^3/uL (0.0-0.7); Absolute Lymphocyte Count 2.36 10^3/uL (1.2-3.4); Absolute Monocyte Count 0.78 10^3/uL (0.1-0.8); Absolute Neutrophil Count 7.48 10^3/uL (1.2-6.7); Basophils % 0.3 %; Eosinophils % 0.4 %; HCT 37.9 % (36.0-46.0); HGB 12.1 g/dL (11.2-15.7); Immature Grans % 0.4 %; MCH 24.1 pg (27.0-33.0); MCHC 31.9 % (32.0-36.0); MCV 76 fL (80-95); MPV 9.3 fL (8.0-11.0); Monocytes % 7.3 %; Neutrophils % 69.6 %; Platelet Count 460 10^3/uL (130-400); RBC 5.02 10^6/uL (3.93-5.22); RDW 14.5 % (11.7-14.6); RDW-SD 38.9 fL; WBC 10.73 10^3/uL (4.4-10.8)
[2024-05-29 14:47] LABS: ALT 24 U/L (14-59); AST 14 U/L (15-37); Albumin 3.4 g/dL (3.4-5.0); Alkaline Phosphatase 79 U/L (46-116); BUN 9 mg/dL (7-18); Bilirubin, Total 0.4 mg/dL (0.2-1.0); CREATININE 0.8 mg/dL (0.55-1.02); Calcium 9.4 mg/dL (8.5-10.1); Chloride 106 mmol/L (98-107); Estimated GFR 108.11 (mL/min/1.73m2); Glucose 94 mg/dL (74-106); Lipase 20 U/L (<78); Potassium 3.8 mmol/L (3.5-5.1); Sodium 141 mmol/L (136-145); Total Protein 7.3 g/dL (6.4-8.2)
== END 2024-05-29 15:50 | disposition home or self-care (01) ==
LOC: LBN 15:49
PROVIDERS: Visit Provider Physician Assistant Medical
DX: R11.2 Nausea with vomiting, unspecified (principal)
CPT/HCPCS: 80053; 83690; 85025

== ENCOUNTER 2024-06-09 23:12 | Emergency (ER) | payer MEDICARE, MEDICAID, SELFPAY ==
[2024-06-09 23:14] VITALS: BP 136/63; PULSE 90; RESP 18; TEMP 36.2; O2SAT 95
[2024-06-09 23:17] VITALS: BP 136/63; PULSE 90; RESP 18; TEMP 36.8; O2SAT 98
--- NOTE | 2024-06-09 23:49 | ED.GENADUL_ITS ---
Discharge Plan Disposition Patient Disposition: Home Condition: Good Discharge Details Clinical Impression: Headache Primary Care Provider: Serenity Andesr ED Provider: Azul Yancey Home Meds and New Rx's Prescriptions: Continued hydrochlorothiazide 12.5 mg tablet 12.5 mg PO DAILY Patient Comments: TAKE 1 TABLET BY MOUTH DAILY IN THE MORNING pantoprazole 40 mg tablet,delayed release (DR/EC) 40 mg PO DAILY Patient Comments: TAKE 1 TABLET BY MOUTH ONCE DAILY FOR 30 DAYS Slow Fe 137 mg (45 mg iron) tablet extended release 137 mg PO DAILY Patient Comments: TAKE 1 TABLET BY MOUTH DAILY prochlorperazine maleate [Compazine] 10 mg tablet 10 mg PO Q6H PRNQty: 10 0RF polyethylene glycol 3350 [Miralax] 17 gram/dose powder 17 g PO BID Qty: 119 0RF Rx Instructions: Take 1 full capful twice a day and a full 8 ounces of water or juice until you have soft regular stools. You may then decrease to once daily ondansetron 4 mg tablet,disintegrating 4 mg PO Q8H PRNQty: 10 0RF Discontinued ondansetron HCl 4 mg tablet 4 mg PO Q8H PRNQty: 10 0RF ondansetron HCl 4 mg tablet 4 mg PO Q8H Qty: 10 0RF Discharge Instructions Instructions: Headache, Adult ED Additional Instructions: Call your primary care doctor in the morning to schedule an appointment to followup on your visit today. And that visit please discuss your recurrent headaches. You can take tylenol and ibuprofen over the counter for pain; follow the directions on the bottle. Return to the emergency department for new or worsening symptoms including severe headache, vomiting, fever, numbness, weakness of one or more parts of your body, vertgio, vision changes, or if you have any other concerns. Referrals: Serenity Anders NP [Primary Care Provider] - Discharge Data Discharge Date/Time-TO BE ENTERED AT DEPARTURE: 06/10/24 00:27 HPI General Mode of arrival: ambulatory . Date/Time Provider Initiated Documentation: 06/09/24 23:12 . Limitations to Documentation: no limitations . Information obtained by: patient . HPI Narrative: 18yo F presenting with headache. Symptoms started two days ago and have been persistent, unrelieved by home tylenol. Similar headaches in the past. Pain is dull, retroorbital, moderate to severe, and keeping her awake. No nausea, vomiting, vertigo, numbness, weakness, or vision changes. No recent head trauma. She is otherwise in her usual state of health with no fevers, chills, rash, neck pain, or other concerns. Related Data Home Medications ?Medication ?Instructions ?Recorded ?Confirmed ferrous sulfate 137 mg (45 mg 137 mg PO DAILY 04/05/24 06/10/24 iron) tablet,extended release (Slow Fe) hydrochlorothiazide 12.5 mg tablet 12.5 mg PO DAILY 04/05/24 06/10/24 pantoprazole 40 mg tablet,delayed 40 mg PO DAILY 04/05/24 06/10/24 release prochlorperazine maleate 10 mg 10 mg PO Q6H PRN #10 tabs 04/05/24 06/10/24 tablet (Compazine) ondansetron 4 mg disintegrating 4 mg PO Q8H PRN #10 tabs 05/21/24 06/10/24 tablet polyethylene glycol 3350 17 17 g PO BID #119 grams 05/21/24 06/10/24 gram/dose oral powder (Miralax) Previous Rx's ?Medication ?Instructions ?Recorded prochlorperazine maleate 10 mg 10 mg PO Q6H PRN #10 tabs 04/05/24 tablet (Compazine) ondansetron 4 mg disintegrating 4 mg PO Q8H PRN #10 tabs 05/21/24 tablet polyethylene glycol 3350 17 17 g PO BID #119 grams 05/21/24 gram/dose oral powder (Miralax) Allergies Allergy/AdvReac Type Severity Reaction Status Date / Time Penicillins Allergy Mild Hives Verified 06/10/24 00:24 strawberry Allergy Unknown Hives Unverified 06/10/24 00:24 General Stated Complaint: Headache YAMINI: 3 Review of Systems Narrative: see HPI Exam Narrative Exam Narrative: General: Alert, well appearing, well nourished, in no acute distress. Head: Normocephalic, atraumatic. No temporal tenderness. Neck: Trachea midline, ?Neck supple. ENT: ?MMM.? No oropharygeal lesions or exudate. Cardiac: ?RRR, no murmurs appreciated Resp: No respiratory distress. CTAB. Abd: ?Soft, non-distended, nontender Extremities: ?No deformities.? No peripheral edema. Neurologic: GCS 15. ? Moves all extremities freely against gravity Neuro: ? GCS 15.? PERRL.? EOMI.? Fluent speech, no dysarthria. Motor- 5/5 strength symmetric bilateral upper and lower extremities including shoulder abductors/adductors, elbow flexors/extensors, wrist flexors/extensors, finger abductors/adductors, hipflexors/extensors, knee flexors/extensors, ankle dorsiflexors and planter flexors. Sensation- ?Intact to light touch and symmetric multiple dermatomes including upper and lower extremities Coordination- No dysmetria on finger to nose Gait/station: ?Normal stance.? No truncal ataxia. Steady gait with equal normal steps CRANIAL NERVES: II: Pupils equal and reactive, III, IV, : EOM intact, no gaze preference or deviation, no nystagmus. V: normal sensation in V1, V2, and V3 segments bilaterally VII: no asymmetry, no nasolabial fold flattening VIII: normal hearing to speech IX, X: normal palatal elevation, no uvular deviation XI: 5/5 head turn and 5/5 shoulder shrug bilaterally XII: midline tongue protrusion Course Vital Signs Vital signs: Vital Signs Temperature 36.2 C L 06/09/24 23:14 Pulse 90 06/09/24 23:14 Respiratory Rate 18 06/09/24 23:14 Blood Pressure 136/63 06/09/24 23:14 Pulse Oximetry 95 06/09/24 23:14 Temperature 36.8 C 06/09/24 23:17 Pulse 90 06/09/24 23:17 Respiratory Rate 18 06/09/24 23:17 Blood Pressure 136/63 06/09/24 23:17 Pulse Oximetry 98 06/09/24 23:17 Oxygen Delivery Method Room Air 06/09/24 23:14 Oxygen Flow Rate 0 06/09/24 23:14 Pain Level 8 06/09/24 23:17 Medical Decision Making 18yo F presenting with headache for two days. Vital signs reassuring on arrival. Normal neurologic exam. No red flags on history for headache. Not suggestive of meningitis, encephalitis, acute angle closure glaucoma, SAH, cerebral venous thrombosis, giant cell arteritis, , or other life threatening pathology. Would not get labs or CT imaging. Will treat with tylenol, toradol, Benadryl, compazine. Patient subsequently reports headache has resolved, requesting discharge home. On reassessment remains well appearing with reassuring vital signs. Discharged home; discharge instructions and return precautions were reviewed with patient who verbalized understanding. All questions were answered and she is in full agreement with the plan. Quality:SDOH Health Related Social Needs: No Data to Display PFSH All Active Problems (Updated 06/10/24 @ 00:14 by Azul Yancey MD) Headache (Acute) Nausea & vomiting (Acute) Upper respiratory virus (Acute) COVID-19 (Acute) Encoporesis (Active) Constipation (Acute 08/15/12) Social History Smoking/Tobacco Use Status: Never Smoking risk assessment performed?: Yes Alcohol Intake: never Drug use: Never Substance use type: does not use Housing: apartment Do you feel safe at home: Yes Do you feel safe in your relationship?: Yes
[2024-06-09] MEDS: Acetaminophen 500 MG TAB 1000 MG PO (23:53)
[2024-06-09] MEDS: diphenhydrAMINE 25 MG CAP 50 MG PO (23:53)
[2024-06-09] MEDS: Prochlorperazine 10 MG/2 ML VIAL IM (23:54)
[2024-06-09] MEDS: Ketorolac 15 MG/ML VIAL IM (23:56)
[2024-06-10 00:27] VITALS: PULSE 64; RESP 18; O2SAT 98
== END 2024-06-10 00:27 | disposition home or self-care (01) ==
PROVIDERS: Emergency Provider Student in an Organized Health Care Education/Training Program; PCP Nurse Practitioner Family
DX: R51.9 Headache, unspecified (principal)
CPT/HCPCS: 96372; 99284; 99283; J0780; J1885

== ENCOUNTER 2024-07-24 21:15 | Emergency (ER) | payer MEDICARE, MEDICAID, SELFPAY ==
[2024-07-24 21:20] VITALS: BP 117/83; PULSE 94; RESP 16; TEMP 36.6; O2SAT 98
[2024-07-24] MEDS: Clindamycin 150 MG CAP 450 MG PO (21:43)
--- NOTE | 2024-07-24 21:43 | W.ED.GENAD ---
Discharge Plan Disposition Patient Disposition: Home Condition: Stable Discharge Details Clinical Impression: Skin lesion, Cellulitis Primary Care Provider: Serenity Anders ED Provider: Raffi Orozco Home Meds and New Rx's Prescriptions: New clindamycin HCl 150 mg capsule 450 mg PO TID 6 Days Qty: 54 0RF clindamycin phosphate 1 % lotion 1 applic topical BID Qty: 60 0RF Rx Instructions: apply to affected area twice daily as needed No Action Slow Fe 137 mg (45 mg iron) tablet extended release 137 mg PO DAILY Qty: 90 3RF polyethylene glycol 3350 [Miralax] 17 gram/dose powder 17 g PO BID PRN (Reason: constipation) Qty: 119 3RF Rx Instructions: Take 1 full capful twice a day and a full 8 ounces of water or juice until you have soft regular stools. You may then decrease to once daily or use as needed fluoxetine 10 mg capsule 10 mg PO DAILY Qty: 90 1RF Classic 28 mg iron- 800 mcg tablet 1 tab PO DAILY 60 Days Qty: 60 6RF hydrochlorothiazide 12.5 mg tablet 12.5 mg PO DAILY Patient Comments: TAKE 1 TABLET BY MOUTH DAILY IN THE MORNING ondansetron 4 mg tablet,disintegrating 4 mg PO Q8H PRNQty: 10 0RF Discharge Instructions Instructions: Cellulitis (skin infection) in adults - Discharge instructions Additional Instructions: Please skin lesions appear to be chronic and recurrent in nature. Almost similar to hidradenitis suppurativa. Because of the extensive surrounding redness, will treat with oral antibiotic. You have also been prescribed a topical antibiotic. You can use this twice daily on any of the lesions that you note to help them heal. Please continue follow-up with your PCP for any ongoing issues. HPI General Date/Time Provider Initiated Documentation: 07/24/24 21:36. Limitations to Documentation: no limitations. Information obtained by: patient. HPI Narrative: 18-year-old female with recent diagnosis of , at 6 weeks, obesity presents for evaluation of skin lesions. She reports that she has not had recurrent issues of these bumps that occasionally drains. She noticed them in bilateral sides. The left side has been irritating her for the last couple of days. It is painful, no drainage, it is very red. She denies any fevers. Related Data Home Medications ?Medication ?Instructions ?Recorded ?Confirmed hydrochlorothiazide 12.5 mg tablet 12.5 mg PO DAILY 04/05/24 07/24/24 ondansetron 4 mg disintegrating 4 mg PO Q8H PRN #10 tabs 05/21/24 07/24/24 tablet ferrous sulfate 137 mg (45 mg 137 mg PO DAILY #90 tabs 07/16/24 07/24/24 iron) tablet,extended release (Slow Fe) fluoxetine 10 mg capsule 10 mg PO DAILY #90 caps 07/16/24 07/24/24 polyethylene glycol 3350 17 17 g PO BID PRN constipation #119 07/16/24 07/24/24 gram/dose oral powder (Miralax) grams clindamycin HCl 150 mg capsule 450 mg (3 x 150 mg) PO TID 6 days 07/24/24 #54 caps clindamycin phosphate 1 % lotion 1 applic topical BID #60 mL 07/24/24 vits no.126-ferrous fum 1 tab PO DAILY 60 days #60 tabs 07/24/24 07/24/24 28 mg iron-folic acid 800 mcg tablet (Classic ) Previous Rx's ?Medication ?Instructions ?Recorded ondansetron 4 mg disintegrating 4 mg PO Q8H PRN #10 tabs 05/21/24 tablet ferrous sulfate 137 mg (45 mg 137 mg PO DAILY #90 tabs 07/16/24 iron) tablet,extended release (Slow Fe) fluoxetine 10 mg capsule 10 mg PO DAILY #90 caps 07/16/24 polyethylene glycol 3350 17 17 g PO BID PRN constipation #119 07/16/24 gram/dose oral powder (Miralax) grams clindamycin HCl 150 mg capsule 450 mg (3 x 150 mg) PO TID 6 days 07/24/24 #54 caps clindamycin phosphate 1 % lotion 1 applic topical BID #60 mL 07/24/24 vits no.126-ferrous fum 1 tab PO DAILY 60 days #60 tabs 07/24/24 28 mg iron-folic acid 800 mcg tablet (Classic ) Allergies Allergy/AdvReac Type Severity Reaction Status Date / Time Penicillins Allergy Mild Hives Verified 07/24/24 21:26 strawberry Allergy Unknown Hives Unverified 07/24/24 21:26 General Stated Complaint: RashLesion YAMINI: 4 Exam Narrative Exam Narrative: Review of Systems: All systems reviewed & are unremarkable except as noted in HPI and below Well-developed, no acute distress Obese afebrile On the left lateral chest wall there are multiple scattered pustular lesions with some confluence of erythema, no definitive abscess or induration these lesions are at about the level of the bra line, not extend thing into the axilla, but there are multiple areas of hyperpigmentation and scarring from previous lesions noted as well as on the right side with similar appearance Course Vital Signs Vital signs: Vital Signs Temperature 36.6 C 07/24/24 21:20 Pulse 94 H 07/24/24 21:20 Respiratory Rate 16 07/24/24 21:20 Blood Pressure 117/83 07/24/24 21:20 Pulse Oximetry 98 07/24/24 21:20 Temperature 36.6 C 07/24/24 21:20 Pulse 94 H 07/24/24 21:20 Respiratory Rate 16 07/24/24 21:20 Blood Pressure 117/83 07/24/24 21:20 Blood Pressure Position Sitting 07/24/24 21:20 Pulse Oximetry 98 07/24/24 21:20 Oxygen Delivery Method Room Air 07/24/24 21:20 Oxygen Flow Rate 0 07/24/24 21:20 Pain Level 7 07/24/24 21:20 Medical Decision Making Emergent evaluation of skin lesions. The patient has no evidence of drainable abscess, she has skin lesions on both sides of the chest wall that look like hidradenitis, but they are not entirely in the axilla but because of her obesity they are kind of in the side fold. She has lots of areas of scarring and the small pustule seem to coordinate with each other so does seem consistent with hidradenitis. The patient will be treated with topical and oral antibiotics, both safe in . Return precautions advised. Recommend follow-up with PCP for ongoing management of this chronic issue. Quality:SDOH Health Related Social Needs: Health related social needs material hardship(utilities) (Z59.12), feeling lonely/isolated (Z60.8) PFSH All Active Problems (Updated 07/24/24 @ 21:38 by Raffi Orozco MD) Cellulitis (Acute) Skin lesion (Acute) Positive test (Acute) Hematemesis/vomiting blood (Acute) Neuralgia (Chronic) right upper limb Posttraumatic stress disorder (Chronic 05/24/11) Obesity (Chronic 07/03/12) Learning disabilities (Chronic 11/17/15) Enuresis (Chronic 05/24/11) Dental caries (Chronic 02/26/12) Attention deficit hyperactivity disorder, combined type (Chronic 02/26/12) Acquired trigger finger (Chronic 05/29/12) eval at orthopaedics 06/13/12 Medical History (Updated 07/24/24 @ 21:38 by Raffi Orozco MD) Encopresis (07/03/12) COVID-19 Constipation (08/05/12) Family History (Updated 07/23/24 @ 15:31 by Marlin Moe CNM) Mother Asthma Diabetes Heart disease Hyperlipidemia Hypertension Stroke Father No problems noted. Sister No problems noted. Brother Asthma Depression Heart disease Hyperlipidemia Hypertension Maternal Grandmother Hypertension Maternal Grandfather COPD (chronic obstructive pulmonary disease) Hypertension Social History (Updated 07/17/24 @ 12:58 by Stephanie Au) Smoking/Tobacco Use Status: Current every day Tobacco Type: smokeless tobacco Second Hand Exposure: Yes Smoking risk assessment performed?: Yes Alcohol Intake: never Drug use: Never Substance use type: does not use Adopted: No Caregiver/Support person: No Household members: spouse and family Housing: apartment Number of Children: 0 number of grandchildren: 0 Communication Needs: None Education Level: high school Details: 12th grade current occupation: Homemaker Sexually active: Yes Do you think of yourself as: straight/heterosexual Current gender identity: female What is your relationship status?: living with partner How often do you talk on the phone with friends or family?: three or more times per week How often do you get together with friends or relatives?: twice per week How often do you attend evangelical or yazidism services?: decline to answer Do you belong to any clubs or organized social groups?: no Panel score (0-1 are the most socially isolated patients): 2 NHANES result reviewed/action taken: Yes What type of physical activity do you participate in: walking Duration: 30-45 minutes/day Frequency: daily Special oriana needs: No Seatbelt use: always Helmet use: Yes Helmet use: always Drive intox or ride w/intox over the road driver: No Firearms in home: No Do you feel safe at home: Yes Do you feel safe in your relationship?: Yes Victim of physical abuse: No Victim of emotional abuse: No Victim of sexual abuse: No Would you like helpful sources: No Female Reproductive History Menstrual Age of Menarche: 10 Duration of menses: 3-5 days control method: none
== END 2024-07-24 21:58 | disposition home or self-care (01) ==
LOC: ER 21:51
PROVIDERS: Emergency Provider Emergency Medicine; PCP Nurse Practitioner Family
DX: R22.2 Localized swelling, mass and lump, trunk (principal); L03.313 Cellulitis of chest wall; Z59.12 Inadequate housing utilities; Z60.8 Other problems related to social environment
CPT/HCPCS: 99283 ×2

== ENCOUNTER → 2024-08-12 13:59 | Outpatient (BNVA) | payer MEDICARE, MEDICAID, SELFPAY | PROVIDERS: PCP Nurse Practitioner Family; Referring Provider Nurse Practitioner Family; Visit Provider Student in an Organized Health Care Education/Training Program | DX: M22.41 Chondromalacia patellae, right knee (principal); Z33.1 Pregnant state, incidental | CPT/HCPCS: 99213 ==

== ENCOUNTER 2024-08-26 01:45 | Outpatient (CLI) | payer MEDICARE, MEDICAID, SELFPAY ==
--- NOTE | 2024-08-26 | DI.US_ITS ---
Exam(s) US ABDOMEN LIMITED EXAM: US ABDOMEN LIMITED CLINICAL HISTORY: POSTPRANDIAL NAUSEA,R11.0,H/O OBESITY,Z86.39,EVAL GB TECHNIQUE: Ultrasound abdomen performed using standard protocol. COMPARISON: No exams were available for comparison FINDINGS: PANCREAS: Normal where visualized. LIVER: Normal. Hepatopetal flow in the Portal Vein. The liver measures in 16.4 cm length. No evidence of a hepatic mass. GALLBLADDER: No evidence of cholelithiasis. No evidence of wall thickening. No pericholecystic fluid identified. BILIARY SYSTEM: Common bile duct measures < 7 mm. No intrahepatic biliary ductal dilation. MCLAUGHLIN'S SIGN: Negative. RIGHT KIDNEY: Kidney is normal in size. No evidence of renal calculi. No evidence of hydronephrosis. No renal mass or cyst identified. ASCITES: None seen. IMPRESSION: Normal sonographic appearance of the upper abdomen. DATA REPOSITORY:
== END 2024-08-26 02:05 ==
LOC: DI 01:45
PROVIDERS: PCP Nurse Practitioner Family; Visit Provider Physician Assistant Medical
DX: R11.0 Nausea (principal); Z86.39 Personal history of other endocrine, nutritional and metabolic disease
CPT/HCPCS: 76705

== ENCOUNTER 2024-08-26 10:10 | Emergency (ER) | payer MEDICARE, MEDICAID, SELFPAY ==
[2024-08-26 10:28] VITALS: BP 110/64; PULSE 90; RESP 16; TEMP 36.6; O2SAT 98
--- NOTE | 2024-08-26 11:00 | DI.RAD_ITS ---
Exam(s) XR SHOULDER RT COMPLETE 2+V EXAM: XR SHOULDER RT COMPLETE 2+V CLINICAL HISTORY: right shoulder pain s/p fall. TECHNIQUE: 2D digital imaging was performed of the right shoulder. Five images were obtained. AP, Grashey, Y-view and axillary views were obtained. COMPARISON: No exams were available for comparison FINDINGS: BONES: No acute fracture is present. No bony destructive lesion is seen. JOINTS: No dislocation present. SOFT TISSUE: Normal. IMPRESSION: Unremarkable radiographs of the right shoulder. DATA REPOSITORY: RADIATION DOSE DELIVERED:
--- NOTE | 2024-08-26 11:00 | DI.US_ITS ---
Exam(s) US RENAL PELVIC TRANSVAGINAL EXAM: US RENAL PELVIC TRANSVAGINAL CLINICAL HISTORY: 10wks preg, fall, right lower pelvic pain. COMPARISON: No exams were available for comparison TECHNIQUE: Transabdominal Transvaginal first trimester obstetrical ultrasound performed. FINDINGS: Sonographic images demonstrate a single intrauterine gestation. A yolk sac and pole are seen. Sonographically assessed gestational age based upon crown-rump length of 3.1 cm is: 10 weeks 0 days Estimated date of delivery based upon LMP: 03/24/2025 heart rate motion is Dopplered at: 171 bpm. No free fluid identified. There is a 4.3 x 3.3 x 3.6 cm right ovarian corpus luteal cyst. Pelvic Measurments Uterus: 10.8 long by 6.7 AP by 6.9 transverse cm. Rt Ovary: 4.1 x 3.5 x 4.2 cm Lt Ovary: 2.4 x 1.2 x 1.4 cm. RENAL: Renal size in cm: Right: 11.4 left: 13.3 Echogenicity: Normal. Hydronephrosis: No. Cyst or mass: No. Nephrolithiasis: No. Other findings: None. Bladder:Normal. Ureteral jets: Right: Visualized and unremarkable. Left: Visualized and unremarkable. Prevoid vol:141 cc Postvoid vol:0 cc Color: Symmetric and uniform flow to both kidneys. IMPRESSION: 1. There is a single living intrauterine gestation estimated sonographic age is 10 weeks 0 days. 2. The kidneys show no evidence of hydronephrosis. DATA REPOSITORY:
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
[2024-08-26 11:43] LABS: Abs Immature Grans 0.04 10^3/uL (0.0-0.06); Absolute Basophil Count 0.02 10^3/uL (0.0-0.2); Absolute Eosinophil Count 0.04 10^3/uL (0.0-0.7); Absolute Lymphocyte Count 1.61 10^3/uL (1.2-3.4); Absolute Monocyte Count 0.55 10^3/uL (0.1-0.8); Absolute Neutrophil Count 8.15 10^3/uL (1.2-6.7); Basophils % 0.2 %; Eosinophils % 0.4 %; HCT 36.2 % (36.0-46.0); HGB 11.9 g/dL (11.2-15.7); Immature Grans % 0.4 %; Lymphocytes % 15.5 %; MCH 24.8 pg (27.0-33.0); MCHC 32.9 % (32.0-36.0); MCV 76 fL (80-95); MPV 9.1 fL (8.0-11.0); Monocytes % 5.3 %; Neutrophils % 78.2 %; Platelet Count 409 10^3/uL (130-400); RBC 4.79 10^6/uL (3.93-5.22); RDW 15.6 % (11.7-14.6); RDW-SD 42.5 fL; WBC 10.41 10^3/uL (4.4-10.8)
[2024-08-26] MEDS: Acetaminophen 500 MG TAB 1000 MG PO (11:45)
[2024-08-26 12:19] LABS: ALT 25 U/L (14-59); AST 13 U/L (15-37); Albumin 2.8 g/dL (3.4-5.0); Alkaline Phosphatase 91 U/L (46-116); Anion Gap 8.1 mmol/L (3-11); BUN 9 mg/dL (7-18); Bilirubin, Total 0.3 mg/dL (0.2-1.0); CO2 25.9 mmol/L (21.0-32.0); CREATININE 0.7 mg/dL (0.55-1.02); Calcium 9.2 mg/dL (8.5-10.1); Chloride 102 mmol/L (98-107); Estimated GFR 126.11 (mL/min/1.73m2); Glucose 118 mg/dL (74-106); Magnesium 1.7 mg/dL (1.8-2.4); Potassium 3.8 mmol/L (3.5-5.1); Sodium 136 mmol/L (136-145); Total Protein 7.3 g/dL (6.4-8.2)
[2024-08-26 13:10] LABS: Bilirubin Negative (Negative); Blood Trace-intact (Negative); Clarity Clear (Clear); Glucose Negative (Negative); Ketones Negative (Negative); Leukocyte Esterase Negative (Negative); Nitrite Negative (Negative); pH 6.5 (5-8)
[2024-08-26 13:18] LABS: WBC 0-2 HPF (0-5)
[2024-08-26 13:19] LABS: Bacteria Few HPF (Negative); C & S Indicated? No; Casts Negative LPF (Negative); Crystals Negative HPF (Negative); Epithelial Cells Moderate HPF (Negative); Mucus Trace (Negative)
[2024-08-26 13:33] VITALS: BP 144/57; PULSE 61; RESP 16; O2SAT 98
== END 2024-08-26 13:36 | disposition home or self-care (01) ==
PROVIDERS: Emergency Provider Emergency Medicine; PCP Nurse Practitioner Family
DX: O26.891 Other specified pregnancy related conditions, first trimester (principal); R10.2 Pelvic and perineal pain; O9A.211 Injury, poisoning and certain other consequences of external causes complicating pregnancy, first trimester; S40.011A Contusion of right shoulder, initial encounter; O99.331 Smoking (tobacco) complicating pregnancy, first trimester; F17.290 Nicotine dependence, other tobacco product, uncomplicated; W01.0XXA Fall on same level from slipping, tripping and stumbling without subsequent striking against object, initial encounter; Y93.01 Activity, walking, marching and hiking
CPT/HCPCS: 36415; 76770; 80053; 86850; 86900; 86901; 99284; 73030; 76705; 76830; 76856; 81003; 81015; 83735; 84702; 85025

== ENCOUNTER 2024-08-31 08:31 | Outpatient (CLI) | payer MEDICARE, MEDICAID, SELFPAY ==
--- NOTE | 2024-08-31 | DI.US_ITS ---
Exam(s) US LOWER EXTREMITY VENOUS RT EXAM: US LOWER EXTREMITY VENOUS RT CLINICAL HISTORY: Pain in rt lower leg, M79.661 TECHNIQUE: Right lower extremity venous ultrasound performed using grayscale, color-flow, and spectral Doppler analysis. COMPARISON: No exams were available for comparison FINDINGS: The right common femoral, femoral and popliteal veins demonstrate normal compressibility, augmentation, and color Doppler. The posterior tibial and peroneal veins are patent. The saphenofemoral junction is unremarkable. There is no evidence of a Garcia cyst. The soft tissues are unremarkable. IMPRESSION: No evidence of a right lower extremity DVT. DATA REPOSITORY:
== END 2024-08-31 08:51 ==
LOC: DI 08:32
PROVIDERS: PCP Nurse Practitioner Family; Visit Provider Physician Assistant Medical
DX: M79.661 Pain in right lower leg (principal)
CPT/HCPCS: 93971

== ENCOUNTER 2024-09-04 01:10 | Outpatient (CLI) | payer MEDICARE, MEDICAID, SELFPAY ==
[2024-09-04 13:32] LABS: Panorama Kit Sent via Fed Ex
[2024-09-04 13:46] LABS: Abs Immature Grans 0.03 10^3/uL (0.0-0.06); Absolute Eosinophil Count 0.03 10^3/uL (0.0-0.7); Absolute Lymphocyte Count 2.19 10^3/uL (1.2-3.4); Basophils % 0.1 %; Eosinophils % 0.2 %; HCT 35.8 % (36.0-46.0); HGB 11.9 g/dL (11.2-15.7); Immature Grans % 0.2 %; Lymphocytes % 16.3 %; MCH 25.3 pg (27.0-33.0); MCHC 33.2 % (32.0-36.0); MCV 76 fL (80-95); Monocytes % 5.1 %; Neutrophils % 78.1 %; Platelet Count 420 10^3/uL (130-400); RBC 4.71 10^6/uL (3.93-5.22); RDW 15.2 % (11.7-14.6); RDW-SD 42.1 fL; WBC 13.44 10^3/uL (4.4-10.8)
[2024-09-04 13:49] LABS: Absolute Basophil Count 0.01 10^3/uL (0.0-0.2); Absolute Monocyte Count 0.69 10^3/uL (0.1-0.8)
[2024-09-07 08:58] LABS: Hepatitis B Surface Ag Negative (Negative)
[2024-09-07 09:19] LABS: HIV-1/2 Ag & Ab Screen Negative (Negative)
[2024-09-07 09:36] LABS: Hepatitis C Ab w Rflx HCV PCR Negative (Negative)
[2024-09-07 10:54] LABS: Rubella IgG Ab (UVM) Positive (See Note); Varicella IgG Antibody Negative (See Note)
[2024-09-07 16:20] LABS: Syphilis IgG w/Reflex Nonreactive (Nonreactive)
[2024-09-24 12:58] LABS: Result Summary NEGATIVE; Specimen WB Whole Blood
== END 2024-09-04 01:11 | disposition home or self-care (01) ==
LOC: LBO 01:11
PROVIDERS: Advanced Practice Midwife; PCP Nurse Practitioner Family; Visit Provider Advanced Practice Midwife
DX: Z34.91 Encounter for supervision of normal pregnancy, unspecified, first trimester (principal)
CPT/HCPCS: 36415; 81220; 81222; 86787; 86803; 86850; 86900; 86901; 87340; 87389; 83036; 85025; 86762; 86780

== ENCOUNTER 2024-09-04 11:23 | Outpatient (REF) | payer MEDICARE, MEDICAID, SELFPAY ==
--- NOTE | 2024-09-04 12:20 | PAPFT_PTH ---
PATIENT: Shilpa Spaulding LOC: [facility] U#:[id number] AGE/SX: 19/F ROOM: RE09/04/[address]: Rosalinda Mcdonald : 2005 BED: DIS: 09/04/2024 SPEC #: [id number] RECD: 09/04/24 13:12 STATUS: [place] #: [id number] TONY: 09/04/24 12:[address]: Rosalinda Mcdonald DEPT: [facility] Cytology RECD BY: Floresita Clement ENTERED: 09/04/24 13:13 SP TYPE: PAPFT NINA DR: Serenity Anders, END USER CONSULTANT Tissues: 1 - CX/ENDOCX FOR PAP SMEARS Procedures: PAP THIN PREP/UVM Screening Comments: [id number]
[2024-09-04 15:51] LABS: *AMPHETAMINES SCREEN URINE Negative (Negative); Cannabinoids THC Negative (Negative)
[2024-09-04 16:50] LABS: *BARBITURATES SCREEN URINE Negative (Negative); *BENZODIAZEPINES SCREEN URINE Negative (Negative); Cocaine Screen,Urine Negative (Negative); METHADONE URINE SCREEN Negative (Negative); OPIATES URINE SCREEN Negative (Negative); Tricyclic Antidepressants Negative (Negative)
[2024-09-07 12:00] LABS: Fentanyl Scr w/Rfx Confirm Negative ng/mL (<1)
[2024-09-15 10:47] LABS: Buprenorphine Negative ng/mL (Cutoff: 5.0); Norbuprenorphine Negative ng/mL (Cutoff: 2.5)
== END 2024-09-04 11:24 | disposition home or self-care (01) ==
LOC: LBN 11:23
PROVIDERS: PCP Nurse Practitioner Family; Visit Provider Advanced Practice Midwife
DX: R30.0 Dysuria (principal); Z12.4 Encounter for screening for malignant neoplasm of cervix
CPT/HCPCS: 80307; 80348; 88142; 87086; 87480; 87510; 87660

== ENCOUNTER 2024-09-11 13:25 | Outpatient (CLI) | payer MEDICARE, MEDICAID, SELFPAY ==
--- NOTE | 2024-09-11 13:15 | RT.EKG_ITS ---
APPROVED REPORT Exam: Resting ECG Reason for Exam: cardiac rehab intake Patient Location: O HR:89 bpm ECG Measurements Heart Rate 89 AXIS PA 139 P 6 QRSd 73 QRS 36 QT 336 T 5 QTc 409 Conclusion Sinus rhythm...normal P axis, V-rate 50- 99 Normal Electrocardiogram
== END 2024-09-11 13:26 | disposition home or self-care (01) ==
PROVIDERS: PCP Nurse Practitioner Family; Visit Provider Advanced Practice Midwife
DX: O99.419 Diseases of the circulatory system complicating pregnancy, unspecified trimester (principal); I49.9 Cardiac arrhythmia, unspecified; R01.1 Cardiac murmur, unspecified
CPT/HCPCS: 93005; 93010

== ENCOUNTER 2024-10-09 00:11 | Outpatient (CLI) | payer MEDICARE, MEDICAID, SELFPAY ==
--- NOTE | 2024-10-09 13:30 | DI.US_ITS ---
APPROVED REPORT EXAM: Comprehensive 2D, Doppler, and color-flow Echocardiogram Patient Location: Out-Patient Residential Counselor: Moses Ray RDCS (AE) Indications: Cardiac arrhythmia, murmur in Other Information Study Quality: Fair. Technically limited study due to body habitus. Conclusion Normal left ventricular wall thickness and chamber size. Ejection fraction is 55 to 60%. Wall motion is normal Normal right ventricular size and function Both atria are normal in size There is no structural or hemodynamically significant valvular disease Wall motion Left Ventricle The left ventricle is normal size. Left ventricular systolic function is normal. The left ventricular ejection fraction is within the normal range. There is normal left ventricular wall thickness. There is normal LV segmental wall motion. The left ventricular diastolic function is normal. There is no v entricular septal defect visualized. LVEF is 55-60%. Right Ventricle The right ventricle is normal size. The right ventricular systolic function is normal. Atria The left atrium size is normal. The right atrium size is normal. The interatrial septum is intact with no evidence for an atrial septal defect. Aortic Valve The aortic valve is normal in structure. There is no aortic valvular stenosis. No aortic regurgitation is present. Mitral Valve The mitral valve is normal in structure. No evidence of mitral valve stenosis. There is no mitral valve regurgitation noted. Tricuspid Valve The tricuspid valve is normal in structure. There is no tricuspid valve stenosis. Mild tricuspid regurgitation. The RVSP is 35 mmHg. Pulmonic Valve The pulmonary valve is normal in structure. There is no pulmonic valvular stenosis. Trace pulmonic regurgitation. Great Vessels The aortic root is normal in size. The ascending aorta is normal in size. Aortic arch is normal in caliber. IVC is normal in size and collapses >50% with inspiration. Pericardium There is no pericardial effusion. 2D Dimensions IVSD d PLAX 0.82 cm F: 0.6-1.0 Ao Root d 2.22 cm F: 2.7 - 3.3 LVPW d PLAX 0.78 cm F: 0.6 - 1.0 Ao Asc Diam d 2.87 cm F: 2.3 - 3.1 LVID d PLAX 4.52 cm F: 3.8 - 5.2 LVDs 3.07 cm F: 2.2 - 3.5 LV EF Teichholz 60.3 % FS 32.07 % LV EDV (Teich) 93.5 mL LV ESV (Teich) 37.1 mL Stroke Vol Index (Teich) 25.53 M-Mode TAPSE 2.55 cm (M/F) >1.7 Auto EF LV EDV A4C 129.9 mL LV EDV A2C 112.0 mL LV EDV BP 120.3 mL LV ESV A4C 58.5 mL LV ESV A2C 49.3 mL LV ESV BP 54.1 mL LVEF(%) A4C 54.9 % LVEF(%) A2C 56.0 % LVEF(%) BP 55.0 % LV SV A4C 71.4 ml LV SV A2C 62.7 ml LV SV BP 66.1 ml LV CO A4C 4.3 L/min LV CO A2C 4.4 L/min LV CO BP 4.3 L/min HR A4C 59.70 BPM HR A2C 70.04 BPM LV EDV Index (BP) LA Volume LA Length A4C 4.9 cm LA Length A2C 3.5 cm LA Area A4C s 9.92 cm2 LA Area A2C s 8.78 cm2 LA Vol A4C A-L 17.22 mL LA Vol A2C A-L 18.55 mL LA Vol Biplane A-L 21.0 mL LA Vol/BSA A4C A-L LA Vol/BSA A2C A-L LA Vol/BSA BP A-L 9.5 mL/m2 LA Vol A4C MOD 16.5 mL LA Vol A2C MOD 17.8 mL LA Vol BP MOD 20.0 mL RA Volume RA Area A4C 8.8 cm2 RA ESV A4C (A-L) 18.3mL RA Vol/BSA A4C A-L RA Length A4C 3.6 cm RA ESV A4C (MOD) 17.2mL LV Diastology MV E' medial 0.113 (>0.07 m/s) MV E Vmax 0.79 (0.4-1.3 m/s) MV E/E' MED 7.02 (<14) MV A Vmax 0.60 (0.4-1.3 m/s) MV E' lateral 0.146 (>0.1 m/s) E/A Ratio 1.3 MV E/E' LAT 5.41 (<14) MV E' Average 0.130 m/s MV E/E'(average) 6.11 Aortic Valve AoV Vmax 1.50 m/s LVOT Vmax 1.04 m/s AoV Peak Grad 9.0 mmHg LVOT Peak Grad 4.3 mmHg AoV Area (Vmax) 2.19 cm2 LVOT VTI 0.213 m AoV VTI 0.307 m LVOT Mean Grad 2.5 mmHg AoV Mean Vamshi. 1.04 m/s LVOT SV 67.07 mL AoV Mean Grad 4.9 mmHg LVOT Diam s 2.00 cm AoV Area (VTI) 2.18 cm2 AV Regurg Peak Gr. 8.98 mmHg Velocity Ratio 0.69 Mitral Valve MV DT 231 (160-240 msec) Pulmonary Valve PV Vmax 1.04 (0.5-1.5 m/s) RVOT Vmax 0.76 m/s PV Peak Grad 4.3 mmHg RVOT Peak Gr. 2.3 mmHg PV Mean Vamshi 0.72 m/s RVOT VTI 0.183 m PV Mean Grad 2.4 mmHg RVOT Mean Gr. 1.4 mmHg Tricuspid Valve RA Pressure 3.00 mmHg TR Vmax 2.83 m/s TR Peak Grad 31.9 mmHg RVSP (TR) 35.0 mmHg
== END 2024-10-09 00:31 ==
LOC: DI 00:11
PROVIDERS: PCP Nurse Practitioner Family; Visit Provider Advanced Practice Midwife
DX: O99.891 Other specified diseases and conditions complicating pregnancy (principal); I49.9 Cardiac arrhythmia, unspecified; Z3A.15 15 weeks gestation of pregnancy
CPT/HCPCS: 93306

== ENCOUNTER 2024-10-27 15:46 | Outpatient (CLI) | payer MEDICARE, MEDICAID, SELFPAY ==
[2024-10-27 15:15] LABS: Hemoglobin A1C 5.2 % (<5.7)
[2024-10-27 16:45] LABS: TSH (W/Ref FT4) 1.37 uIU/mL (0.36-3.74)
== END 2024-10-27 15:47 | disposition home or self-care (01) ==
LOC: LBO 15:46
PROVIDERS: Advanced Practice Midwife; PCP Nurse Practitioner Family; Visit Provider Physician Assistant Medical
DX: Z86.39 Personal history of other endocrine, nutritional and metabolic disease (principal); R11.0 Nausea
CPT/HCPCS: 36415; 82784; 86364; 83036; 84443

== ENCOUNTER 2024-12-09 18:07 | Emergency (ER) | payer MEDICARE, MEDICAID, SELFPAY ==
[2024-12-09 18:11] VITALS: BP 124/77; PULSE 81; RESP 18; TEMP 36.6; O2SAT 98
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
[2024-12-09] MEDS: Clotrimazole 1% 15 GM TUBE TP (19:13)
[2024-12-09] MEDS: Ondansetron O.D.T. 4 MG TABEF, 3 TABS/BTL PO (19:13)
== END 2024-12-09 19:18 | disposition home or self-care (01) ==
PROVIDERS: Emergency Provider Emergency Medicine; PCP Nurse Practitioner Family
DX: L30.4 Erythema intertrigo (principal); F17.290 Nicotine dependence, other tobacco product, uncomplicated; Z79.82 Long term (current) use of aspirin
CPT/HCPCS: 76857; 99284

== ENCOUNTER 2024-12-11 16:39 | Outpatient (CLI) | payer MEDICARE, MEDICAID, SELFPAY ==
[2024-12-11 17:14] VITALS: BP 117/66; PULSE 74; TEMP 36.8
[2024-12-11 17:22] VITALS: BP 117/66; PULSE 74
[2024-12-11 17:33] LABS: Glucose Negative (Negative)
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
[2024-12-11 18:22] LABS: COVID-19 PCR Negative (Negative)
[2024-12-11 18:24] LABS: Abs Immature Grans 0.06 10^3/uL (0.0-0.06); HCT 33.1 % (36.0-46.0); HGB 11.0 g/dL (11.2-15.7); Immature Grans % 0.5 %; MCH 25.9 pg (27.0-33.0); MCHC 33.2 % (32.0-36.0); MCV 78 fL (80-95); MPV 9.1 fL (8.0-11.0); Platelet Count 392 10^3/uL (130-400); RBC 4.25 10^6/uL (3.93-5.22); RDW 14.5 % (11.7-14.6); RDW-SD 40.7 fL; WBC 12.36 10^3/uL (4.4-10.8)
[2024-12-11 18:40] LABS: ALT 22 U/L (14-59); AST 14 U/L (15-37); Albumin 2.4 g/dL (3.4-5.0); Alkaline Phosphatase 111 U/L (46-116); Amylase 38 U/L (25-115); Anion Gap 9.9 mmol/L (3-11); BUN 6 mg/dL (7-18); Bilirubin, Total 0.2 mg/dL (0.2-1.0); CO2 24.1 mmol/L (21.0-32.0); Calcium 8.8 mg/dL (8.5-10.1); Chloride 104 mmol/L (98-107); Estimated GFR 130.88 (mL/min/1.73m2); Glucose 82 mg/dL (74-106); Lipase 20 U/L (<78); Potassium 3.6 mmol/L (3.5-5.1); Sodium 138 mmol/L (136-145); Total Protein 6.9 g/dL (6.4-8.2)
--- NOTE | 2024-12-11 18:42 | W.OBNST ---
Date of service: 12/11/24 Time of Service: 18:42 NST Evaluation Reason for NST Reasons for Nonstress Test: OTHER, SEE COMMENT Reason for NST Other: not feeling well Gestational Age Gestational Age in Weeks and Days: 25 Weeks and 1Days Test and Monitor Explained Test/Monitor Explained: Test Explained, Monitor Explained and Patient Verbalized Understanding Vital Signs Blood Pressure: 117/66 Pulse: 74 Temperature: 98.3 F NST Information Time on Monitor: 17:20 Date off Monitor: 12/11/24 Time off Monitor: 18:12 NST Interventions: PO Hydration and Meal Given Contraction Frequency: 0 NST Evaluation Patient States Movement: Present FHR Baseline: 155 Variability: Moderate 6-25 bpm Accelerations: None Decelerations: None NST Results: Reactive Note Ultrasound Done: N/A. NST Note Note: Shilpa called and reports that she does not feel well and has been vomiting for 3 days. She was prescribed rifampin and clindamycin for hidradenitis supparativa by MD at [facility]. She called her doctor this morning and reported that she has been vomiting and she was instructed to discontinue the 2 antibiotics which she did do. She takes zofran 8 mg Q8 hours throughout her for nausea. She took a dose this morning and a second dose prior to presentation at the center. She reports that she has been diagnosed with gastroenteritis in the past and she was scheduled of upper GI imaging before she became . She reported that she does not take medication for stomach acid. She was prescribed protonix for nausea and vomiting but she discontinued taking it. Shilpa reports that she is hungry and was eating arcadio rackers and drinking water and tolerating that. She requested a tuna sandwich for dinner and she tolerated that as well as po water well. She denies pain. She was instructed to return for abdominal US next week to rule out gallbladder disease. urine :urolbilinogen 2.0 and trace ketones. She was instructed to resume protonix 40 mg PO daily NST Reviewed and Verified by: Rosalinda Mcdonald
[2024-12-11 18:43] VITALS: BP 117/66; PULSE 74; TEMP 36.8
== END 2024-12-11 19:00 | disposition home or self-care (01) ==
LOC: BCD 16:39 → OBS 17:05
PROVIDERS: PCP Nurse Practitioner Family; Visit Provider Advanced Practice Midwife
DX: O99.891 Other specified diseases and conditions complicating pregnancy (principal); O21.9 Vomiting of pregnancy, unspecified; Z3A.25 25 weeks gestation of pregnancy
CPT/HCPCS: 80053; 83690; 87635; 59025; 81003; 82150; 85025

== ENCOUNTER 2024-12-14 07:39 | Outpatient (CLI) | payer MEDICARE, MEDICAID, SELFPAY ==
--- NOTE | 2024-12-14 07:15 | DI.US_ITS ---
Exam(s) US ABDOMEN LIMITED EXAM: US ABDOMEN LIMITED CLINICAL HISTORY: persistent nausea nd vomiting . urobilinogen high O21.9 DURING TECHNIQUE: Ultrasound abdomen performed using standard protocol. COMPARISON: US POCUS EXAM from 12/09/2024 FINDINGS: There is no ascites evident. LIVER: There are no hepatic lesions evident nor dilatation of intrahepatic ducts. GALLBLADDER/BILIARY: There are multiple tiny layering shadowing calculi seen on the dependent wall the gallbladder. Gallbladder wall itself is not thickened and there is no pericholecystic fluid. The common hepatic duct isnot dilated, measuring 4-5mm at the level of leigh hepatis. PANCREAS: There is no evidence of pancreatic mass nor dilatation of the pancreatic duct. RIGHT KIDNEY:No evidence of solid mass, calculus, nor hydronephrosis. No cortical cysts evident. IMPRESSION: 1. Cholelithiasis. There are multiple tiny shadowing calculi in the gallbladder lumen. There is no evidence of gallbladder distension nor obvious gallbladder wall edema to suggest acute cholecystitis at this time. The common hepatic duct is not dilated. 2. No other significant ultrasound findings in the right upper quadrant. 3. There is no ascites. Viable fetus noted. heart rate recorded at 162 BPM DATA REPOSITORY:
== END 2024-12-14 07:59 ==
LOC: DI 07:39
PROVIDERS: PCP Nurse Practitioner Family; Visit Provider Advanced Practice Midwife
DX: O26.612 Liver and biliary tract disorders in pregnancy, second trimester (principal); O21.9 Vomiting of pregnancy, unspecified; Z3A.25 25 weeks gestation of pregnancy
CPT/HCPCS: 76705

== ENCOUNTER 2024-12-16 11:35 | Outpatient (CLI) | payer MEDICARE, MEDICAID, SELFPAY ==
[2024-12-16] MEDS: Pantoprazole 40 MG TABCR PO (16:09)
[2024-12-16 16:15] VITALS: BP 116/66; PULSE 75; RESP 18; TEMP 36.7; O2SAT 99
[2024-12-16 16:41] LABS: Glucose Negative (Negative)
[2024-12-16 16:47] LABS: C & S Indicated? No; RBC 0-2 HPF (0-2)
[2024-12-16 16:48] LABS: Fetal Fibronectin Negative (Negative)
[2024-12-16] MEDS: metroNIDAZOLE 500 MG TAB PO (17:25)
[2024-12-16 18:16] VITALS: BP 116/66; PULSE 75; TEMP 36.6
--- NOTE | 2024-12-16 18:22 | W.OBNST ---
Date of service: 12/16/24 Time of Service: 18:22 NST Evaluation Reason for NST Reasons for Nonstress Test: OTHER, SEE COMMENT Reason for NST Other: abdominal pain Gestational Age Gestational Age in Weeks and Days: 25 Weeks and 6Days Test and Monitor Explained Test/Monitor Explained: Test Explained and Monitor Explained Vital Signs Blood Pressure: 116/66 Pulse: 75 Temperature: 97.9 F Weight: 272 lb NST Information Date on Monitor: 12/16/24 Time on Monitor: 14:20 Date off Monitor: 12/16/24 Time off Monitor: 15:12 Total Time on Monitor: 52 NST Interventions: PO Hydration and Meal Given NST Evaluation Patient States Movement: Present FHR Baseline: 155 Variability: Moderate 6-25 bpm Note Ultrasound Done: N/A. NST Note Note: Shilpa reported lower abdominal discomfort bilaterally accompanied by burning with urination. She also experienced a spot of blood when she wiped. She had right upper quadrant pain last night which has subsided today. She is resting comfortably and requested lunch as she has not eaten today or taken any of her medications. One dose of metronidazole was given for presumptive bacterial vaginosis and vaginal odor. She denies nausea. Speculum exam performed and FFN, vaginal pathogen screen taken. Urinalysis negative, culture not indicated. Vaginal path screen pos for yeast and I ordered clotimazole 7 day for treatment with instructions. Sign sof labor reviewed. She was encouraged to call if bleeding recurs or signs of labor occur. She has been referred to [facility] for surgery consult . NST Reviewed and Verified by: Rosalinda Mcdonald
[2024-12-16 18:26] VITALS: BP 116/66; PULSE 75; TEMP 36.6
== END 2024-12-16 18:05 ==
LOC: BCD 11:35 → OBS 14:22
PROVIDERS: PCP Nurse Practitioner Family; Visit Provider Advanced Practice Midwife
DX: O99.891 Other specified diseases and conditions complicating pregnancy (principal); R10.30 Lower abdominal pain, unspecified; Z3A.25 25 weeks gestation of pregnancy
CPT/HCPCS: 59025; 81003; 81015; 82731; 87480; 87510; 87660

== ENCOUNTER 2024-12-18 20:03 | Outpatient (REF) | payer MEDICARE, MEDICAID, SELFPAY ==
[2024-12-18 22:04] LABS: COVID-19 PCR Negative (Negative); RSV PCR Negative (Negative)
== END 2024-12-18 20:04 | disposition home or self-care (01) ==
LOC: LBN 20:03
PROVIDERS: PCP Nurse Practitioner Family; Visit Provider Physician Assistant Medical
DX: Z20.822 Contact with and (suspected) exposure to COVID-19 (principal)
CPT/HCPCS: 87637

== ENCOUNTER 2024-12-31 05:23 | Outpatient (CLI) | payer MEDICARE, MEDICAID, SELFPAY ==
[2024-12-31 12:32] LABS: HCT 33.5 % (36.0-46.0); HGB 11.1 g/dL (11.2-15.7); MCH 25.8 pg (27.0-33.0); MCHC 33.1 % (32.0-36.0); MCV 78 fL (80-95); MPV 9.2 fL (8.0-11.0); Platelet Count 393 10^3/uL (130-400); RBC 4.30 10^6/uL (3.93-5.22); RDW 13.9 % (11.7-14.6); RDW-SD 39.0 fL; WBC 14.01 10^3/uL (4.4-10.8)
[2024-12-31 12:52] LABS: Glucose,1 Hr (Glucola) 172 mg/dL (80-140)
== END 2024-12-31 05:24 | disposition home or self-care (01) ==
LOC: LBO 05:24
PROVIDERS: Obstetrics & Gynecology; PCP Nurse Practitioner Family; Visit Provider Advanced Practice Midwife
DX: Z34.93 Encounter for supervision of normal pregnancy, unspecified, third trimester (principal)
CPT/HCPCS: 36415; 82950; 85027

== ENCOUNTER 2025-01-06 01:35 | Outpatient (CLI) | payer MEDICARE, MEDICAID, SELFPAY ==
[2025-01-06 10:44] LABS: Glucose 1 Hour 162 mg/dL
== END 2025-01-06 01:36 | disposition home or self-care (01) ==
LOC: LBO 01:35
PROVIDERS: PCP Nurse Practitioner Family; Visit Provider Advanced Practice Midwife
DX: R73.09 Other abnormal glucose (principal)
CPT/HCPCS: 36415; 82951

== ENCOUNTER 2025-01-08 03:14 | Outpatient (CLI) | payer MEDICARE, MEDICAID, SELFPAY ==
--- NOTE | 2025-01-08 07:15 | DI.US_ITS ---
Exam(s) US OB MAXIMILIAN WEIGHT EXAM: US OB MAXIMILIAN WEIGHT CLINICAL HISTORY: growth at 30 wks,Z34.90. TECHNIQUE: Transabdominal obstetrical ultrasound performed. COMPARISON: US US RENAL PELVIC TRANSVAGINAL from 08/26/2024 US US ABDOMEN LIMITED from 12/14/2024 FINDINGS:: Number of fetuses: 1 position: CEPHALIC Placental location: ANTERIOR No evidence of previa. BIOMETRIC DATA: BPD: 7.6cm mm = 30weeks 3days HC: 27.34cm mm = 29weeks 6days AC: 26.97cm mm = 31weeks FL: 5.86cm mm = 30weeks 4days EFW: 1,632.02g, 3lb 10.07oz, 90% Composite Age: 30weeks 3days ROBINSON: 03/16/2025 Heart Rate: 161bpm Amniotic fluid index: 21.2cm. High end of normal range. IMPRESSION: size and weight are at the high normal range. MAXIMILIAN also high normal range. DATA REPOSITORY:
== END 2025-01-08 03:34 ==
LOC: DI 03:15
PROVIDERS: PCP Nurse Practitioner Family; Visit Provider Advanced Practice Midwife
DX: Z34.91 Encounter for supervision of normal pregnancy, unspecified, first trimester (principal); Z68.41 Body mass index [BMI] 40.0-44.9, adult
CPT/HCPCS: 76816

== ENCOUNTER 2025-01-08 14:40 | Outpatient (REF) | payer MEDICARE, MEDICAID, SELFPAY ==
[2025-01-08 16:28] LABS: Cannabinoids THC Negative (Negative); METHADONE URINE SCREEN Negative (Negative)
[2025-01-10 16:01] LABS: Fentanyl Scr w/Rfx Confirm Negative ng/mL (<1)
== END 2025-01-08 14:41 | disposition home or self-care (01) ==
LOC: LBN 14:40
PROVIDERS: Obstetrics & Gynecology; PCP Nurse Practitioner Family; Visit Provider Advanced Practice Midwife
DX: Z34.93 Encounter for supervision of normal pregnancy, unspecified, third trimester (principal)
CPT/HCPCS: 80307; 80348

== ENCOUNTER 2025-01-17 00:48 | Emergency (ER) | payer MEDICARE, MEDICAID, SELFPAY ==
[2025-01-17 00:49] VITALS: BP 105/50; PULSE 91
[2025-01-17 00:50] VITALS: BP 105/50; PULSE 96; RESP 20; TEMP 36.6; O2SAT 97
[2025-01-17 01:00] VITALS: BP 98/51; PULSE 93; RESP 16; O2SAT 98
[2025-01-17 01:00] LABS: RSV PCR Negative (Negative)
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
[2025-01-17] MEDS: Azithromycin 250 MG TAB 500 MG PO (01:08)
[2025-01-17 01:11] LABS: COVID-19 PCR Positive (Negative)
[2025-01-17 01:15] VITALS: BP 105/48; PULSE 87; O2SAT 96
[2025-01-17] MEDS: Acetaminophen 325 MG TAB 650 MG PO (01:22)
[2025-01-17 01:30] VITALS: BP 112/61; PULSE 91; O2SAT 97
[2025-01-17 01:45] VITALS: BP 102/55; PULSE 83; O2SAT 97
== END 2025-01-17 01:40 | disposition home or self-care (01) ==
PROVIDERS: Emergency Provider Emergency Medicine Emergency Medical Services; PCP Nurse Practitioner Family
DX: U07.1 COVID-19 (principal); J06.9 Acute upper respiratory infection, unspecified; Z11.52 Encounter for screening for COVID-19; Z3A.30 30 weeks gestation of pregnancy; Z59.87 Material hardship due to limited financial resources, not elsewhere classified; Z60.8 Other problems related to social environment
CPT/HCPCS: 99283 ×2; 87637

== ENCOUNTER 2025-01-22 13:37 | Outpatient (REF) | payer MEDICARE, MEDICAID, SELFPAY | END 2025-01-22 13:38 | disposition home or self-care (01) | LOC: LBN 13:37 | PROVIDERS: PCP Nurse Practitioner Family; Visit Provider Advanced Practice Midwife | DX: O23.593 Infection of other part of genital tract in pregnancy, third trimester (principal); B96.89 Other specified bacterial agents as the cause of diseases classified elsewhere | CPT/HCPCS: 87480; 87510; 87660 ==

== ENCOUNTER 2025-01-26 15:52 | Outpatient (CLI) | payer MEDICARE, MEDICAID, SELFPAY ==
[2025-01-26 16:08] VITALS: BP 117/60; PULSE 92; TEMP 36.9
[2025-01-26 16:14] VITALS: BP 117/60; PULSE 92
--- NOTE | 2025-01-26 17:32 | W.OBNST ---
Date of service: 01/26/25 Time of Service: 17:35 NST Evaluation Reason for NST Reasons for Nonstress Test: GDM- PO MEDICATION, FALSE LABOR and LABOR Gestational Age Gestational Age in Weeks and Days: 31 Weeks and 5Days Test and Monitor Explained Test/Monitor Explained: Patient Verbalized Understanding Vital Signs Blood Pressure: 117/60 Pulse: 92 Temperature: 98.4 F NST Information Date on Monitor: 01/26/25 Time on Monitor: 16:08 Date off Monitor: 01/26/25 Time off Monitor: 17:02 Total Time on Monitor: 54 NST Interventions: None NST Evaluation Patient States Movement: Present FHR Baseline: 145 Variability: Moderate 6-25 bpm Accelerations: 10x10 NST Results: Reactive Note Ultrasound Done: N/A. NST Note Note: Shilpa reported right flank pain which occurred earlier today. It was not ocurring on arrival. Reactive NST. No evidence of labor. Urine not obtained because patient had already voided. She denies dysuria symptoms. Vaginitis screen neg 01/22. Follow up at [facility]. NST Reviewed and Verified by: Rosalinda Mcdonald
[2025-01-26 17:34] VITALS: BP 117/60; PULSE 92; TEMP 36.9
== END 2025-01-26 17:13 ==
LOC: BCD 15:52 → OBS 16:05
PROVIDERS: PCP Nurse Practitioner Family; Visit Provider Advanced Practice Midwife
DX: O24.415 Gestational diabetes mellitus in pregnancy, controlled by oral hypoglycemic drugs (principal); O47.03 False labor before 37 completed weeks of gestation, third trimester; Z3A.31 31 weeks gestation of pregnancy
CPT/HCPCS: 59025

== ENCOUNTER 2025-02-03 14:31 | Outpatient (CLI) | payer MEDICARE, MEDICAID, SELFPAY ==
[2025-02-03 14:44] VITALS: BP 123/60; PULSE 84; TEMP 36.6
[2025-02-03 15:59] VITALS: BP 123/60; PULSE 84; TEMP 36.6
--- NOTE | 2025-02-03 15:59 | W.OBNST ---
Date of service: 02/03/25 Time of Service: 15:59 NST Evaluation Reason for NST Reasons for Nonstress Test: OTHER, SEE COMMENT Reason for NST Other: urinary/bowel issues Gestational Age Gestational Age in Weeks and Days: 32 Weeks and 6Days Test and Monitor Explained Test/Monitor Explained: Test Explained, Monitor Explained and Patient Verbalized Understanding Vital Signs Blood Pressure: 123/60 Pulse: 84 Temperature: 97.9 F NST Information Date on Monitor: 02/03/25 Time on Monitor: 14:34 Date off Monitor: 02/03/25 Time off Monitor: 15:27 Total Time on Monitor: 53 NST Interventions: PO Hydration Contraction Frequency: 0 NST Evaluation Patient States Movement: Present FHR Baseline: 135 Variability: Moderate 6-25 bpm Accelerations: 15x15 Decelerations: None NST Results: Reactive Note Ultrasound Done: N/A. NST Note NST Reviewed and Verified by: Ngoc Ennis
== END 2025-02-03 16:20 ==
LOC: BCD 14:32 → OBS 14:43
PROVIDERS: PCP Nurse Practitioner Family; Visit Provider Advanced Practice Midwife
DX: O99.891 Other specified diseases and conditions complicating pregnancy (principal); R19.4 Change in bowel habit; Z3A.32 32 weeks gestation of pregnancy
CPT/HCPCS: 59025

== ENCOUNTER → 2025-02-08 02:12 | Outpatient (CLI) | payer MEDICARE, MEDICAID, SELFPAY ==
--- NOTE | 2025-02-08 10:00 | DI.US_ITS ---
Exam(s) US OB MAXIMILIAN WEIGHT EXAM: US OB MAXIMILIAN WEIGHT CLINICAL HISTORY: interval growth,elevated glucose,r73.09,z34.90. TECHNIQUE: Transabdominal obstetrical ultrasound performed. COMPARISON: US US OB MAXIMILIAN WEIGHT from 01/08/2025 FINDINGS: Number of fetuses: 1 position: CEPHALIC Placental location: There is a grade 2 anterior placenta. No evidence of previa. BIOMETRIC DATA: BPD: 8.64cm, 34weeks 6days HC: 30.81cm, 34weeks 3days AC: 30.76cm, 34weeks 5days FL: 6.84cm, 35weeks 1day EFW: 2,518.53g, 5lb 8.83oz, 79% Composite Age: 34weeks 6days ROBINSON: 03/16/2025 Heart Rate: 153bpm Amniotic fluid index: 18.4cm. The largest pocket is 5.5 cm. IMPRESSION: 1. Single live intrauterine gestation as above. 2. Estimated weight is 2519gms. This is the 79th percentile. 3. Amniotic fluid index is 18.4 cm. The largest pocket measures 5.5 cm. DATA REPOSITORY:
== END ==
LOC: DI 02:12
PROVIDERS: PCP Nurse Practitioner Family; Visit Provider Advanced Practice Midwife
DX: Z34.93 Encounter for supervision of normal pregnancy, unspecified, third trimester (principal); Z68.41 Body mass index [BMI] 40.0-44.9, adult; R73.09 Other abnormal glucose; Z3A.33 33 weeks gestation of pregnancy
CPT/HCPCS: 76816

== ENCOUNTER 2025-02-15 19:55 | Outpatient (CLI) | payer MEDICARE, MEDICAID, SELFPAY ==
[2025-02-15 22:51] VITALS: BP 126/63; PULSE 77; RESP 18
[2025-02-15 22:52] VITALS: BP 126/63; PULSE 77; TEMP 18
--- NOTE | 2025-02-16 03:44 | W.OBNST ---
Date of service: 02/16/25 Time of Service: 03:44 NST Evaluation Reason for NST Reasons for Nonstress Test: DECREASED MOVEMENT Gestational Age Gestational Age in Weeks and Days: 34 Weeks and 4Days Test and Monitor Explained Test/Monitor Explained: Test Explained Vital Signs Blood Pressure: 126/63 Pulse: 77 Temperature: 64.4 F Urine Results Urine Protein: Negative Urine Ketones: Negative Urine Glucose: Negative Urine Blood: Negative NST Information Date on Monitor: 02/15/25 Time on Monitor: 22:35 Date off Monitor: 02/15/25 NST Interventions: PO Hydration NST Evaluation Patient States Movement: Present FHR Baseline: 130 Variability: Moderate 6-25 bpm Accelerations: 15x15 NST Results: Reactive Note Ultrasound Done: N/A. NST Note Note: Shilpa called and was concerned that she had swelling in her ankles. She also reported hip discomfort. She was sitting all day in the car. No edema noted and reactive NST. Follow up at [facility]. NST Reviewed and Verified by: Rosalinda Mcdonald
[2025-02-16 03:47] VITALS: BP 126/63; PULSE 77; TEMP 18
== END 2025-02-15 23:02 ==
LOC: BCD 19:56 → OBS 19:58
PROVIDERS: PCP Nurse Practitioner Family; Visit Provider Advanced Practice Midwife
DX: O36.8131 Decreased fetal movements, third trimester, fetus 1 (principal); Z3A.34 34 weeks gestation of pregnancy
CPT/HCPCS: 59025

== ENCOUNTER 2025-02-26 09:03 | Outpatient (REF) | payer MEDICARE, MEDICAID, SELFPAY | END 2025-02-26 09:04 | disposition home or self-care (01) | LOC: LBN 09:03 | PROVIDERS: PCP Nurse Practitioner Family; Visit Provider Advanced Practice Midwife | DX: Z34.93 Encounter for supervision of normal pregnancy, unspecified, third trimester (principal) | CPT/HCPCS: 87081 ==

== ENCOUNTER 2025-02-26 09:44 | Outpatient (CLI) | payer MEDICARE, MEDICAID, SELFPAY ==
[2025-02-26 10:06] VITALS: BP 114/65; PULSE 83; TEMP 36.5
[2025-02-26 10:08] VITALS: BP 114/65; PULSE 83
[2025-02-26 12:15] VITALS: BP 114/65; PULSE 83; TEMP 36.5
--- NOTE | 2025-02-26 12:15 | W.OBNST ---
Date of service: 02/26/25 Time of Service: 12:15 NST Evaluation Reason for NST Reasons for Nonstress Test: OTHER, SEE COMMENT Reason for NST Other: Increased BMI Gestational Age Gestational Age in Weeks and Days: 36 Weeks and 1Days Test and Monitor Explained Test/Monitor Explained: Test Explained and Monitor Explained Vital Signs Blood Pressure: 114/65 Pulse: 83 Temperature: 97.7 F Weight: 280 lb Urine Results Urine Protein: Negative Urine Ketones: Negative Urine Glucose: Negative Urine Blood: Negative NST Information Date on Monitor: 02/26/25 Time on Monitor: 10:04 Date off Monitor: 02/26/25 Time off Monitor: 11:50 Total Time on Monitor: 106 NST Interventions: PO Hydration NST Evaluation Patient States Movement: Present FHR Baseline: 145 Variability: Moderate 6-25 bpm Accelerations: 15x15 Decelerations: None NST Results: Reactive Note Ultrasound Done: N/A. NST Note NST Reviewed and Verified by: Ngoc Ennis
== END 2025-02-26 12:00 ==
LOC: BCD 09:58 → OBS 09:59
PROVIDERS: PCP Nurse Practitioner Family; Visit Provider Advanced Practice Midwife
DX: O99.213 Obesity complicating pregnancy, third trimester (principal); Z3A.36 36 weeks gestation of pregnancy
CPT/HCPCS: 59025

== ENCOUNTER 2025-03-04 19:34 | Outpatient (CLI) | payer MEDICARE, MEDICAID, SELFPAY ==
--- NOTE | 2025-03-04 21:09 | W.OBNST ---
Date of service: 03/04/25 Time of Service: 21:00 NST Evaluation Reason for NST Reasons for Nonstress Test: GDM-DIET CONTROLLED and OTHER, SEE COMMENT Reason for NST Other: Patient thinks she ruptured her membranes Gestational Age Gestational Age in Weeks and Days: 36 Weeks and 1Days Test and Monitor Explained Test/Monitor Explained: Test Explained and Patient Verbalized Understanding NST Evaluation Patient States Movement: Present
[2025-03-04 21:26] VITALS: BP 114/69; PULSE 81; TEMP 36.7
--- NOTE | 2025-03-05 09:12 | W.OBNST ---
Date of service: 03/04/25 Time of Service: 17:00 NST Evaluation Reason for NST Reasons for Nonstress Test: OTHER, SEE COMMENT Reason for NST Other: question srom Gestational Age Gestational Age in Weeks and Days: 37 Weeks and 0Days Test and Monitor Explained Test/Monitor Explained: Patient Verbalized Understanding Vital Signs Blood Pressure: 114/69 Pulse: 81 Temperature: 98.1 F NST Information Date on Monitor: 03/04/25 Time on Monitor: 20:36 Date off Monitor: 03/04/25 Time off Monitor: 21:26 Total Time on Monitor: 50 NST Interventions: PO Hydration NST Evaluation Patient States Movement: Present FHR Baseline: 135 Variability: Moderate 6-25 bpm Accelerations: 15x15 Decelerations: None NST Results: Reactive Note Ultrasound Done: N/A. NST Note NST Reviewed and Verified by: Nhung Slaughter
[2025-03-05 09:14] VITALS: BP 114/69; PULSE 81; TEMP 36.7
== END 2025-03-04 22:07 ==
LOC: BCD 19:34 → OBS 20:33
PROVIDERS: PCP Nurse Practitioner Family; Visit Provider Registered Nurse
DX: O47.1 False labor at or after 37 completed weeks of gestation (principal); Z3A.37 37 weeks gestation of pregnancy
CPT/HCPCS: 84112; 59025

== ENCOUNTER 2025-03-05 11:27 | Outpatient (REF) | payer MEDICARE, MEDICAID, SELFPAY | END 2025-03-05 11:28 | disposition home or self-care (01) | LOC: LBN 11:27 | PROVIDERS: PCP Nurse Practitioner Family; Visit Provider Nurse Practitioner Obstetrics & Gynecology | DX: N89.8 Other specified noninflammatory disorders of vagina (principal) | CPT/HCPCS: 84112; 87480; 87510; 87660 ==

== ENCOUNTER → 2025-03-12 00:04 | Outpatient (CLI) | payer MEDICARE, MEDICAID, SELFPAY ==
--- NOTE | 2025-03-12 08:00 | DI.US_ITS ---
Exam(s) US OB MAXIMILIAN WEIGHT EXAM: US OB MAXIMILIAN WEIGHT CLINICAL HISTORY: size greater than dates. Z34.90 SUPERVISION NORMAL . TECHNIQUE: Transabdominal obstetrical ultrasound was performed. COMPARISON: US US OB MAXIMILIAN WEIGHT from 02/08/2025 FINDINGS: There is a single viable intrauterine gestation with cardiac activity identified-148 bpm The fetus is presently in cephalic position with spine pointing posteriorly.. Amniotic fluid: There is a normal amount of amniotic fluid with an MAXIMILIAN of 15.1cm. Placental location: The placenta is anterior grade 2-3,with no evidence of placenta previa. Dating parameters place this at approximately 38 weeks and 6 days gestational age, implying ROBINSON of 03/20/2025. BPD measures 38 weeks and 3 days HC measures 39 weeks and 2 days AC measures 39 weeks and 3 days FL measures 38 weeks and 3 days Estimated weight is 3689 gm-8 pounds 2 ounces Fetus is at the 85th percentile on the Hadlock scale. IMPRESSION:: Viable 3rd trimester gestation, as described above. DATA REPOSITORY:
== END ==
LOC: DI 00:04
PROVIDERS: PCP Nurse Practitioner Family; Visit Provider Advanced Practice Midwife
DX: Z34.93 Encounter for supervision of normal pregnancy, unspecified, third trimester (principal)
CPT/HCPCS: 76816

== ENCOUNTER 2025-03-12 07:34 | Outpatient (CLI) | payer MEDICARE, MEDICAID, SELFPAY ==
[2025-03-12 13:48] VITALS: BP 146/65; PULSE 85
[2025-03-12 13:52] VITALS: BP 146/65; PULSE 85
[2025-03-12 14:17] VITALS: BP 132/63; PULSE 73
[2025-03-12 14:32] VITALS: BP 141/55; PULSE 75
[2025-03-12 15:00] LABS: HCT 34.3 % (36.0-46.0); HGB 11.4 g/dL (11.2-15.7); MCH 25.8 pg (27.0-33.0); MCHC 33.2 % (32.0-36.0); MCV 78 fL (80-95); MPV 9.5 fL (8.0-11.0); Platelet Count 369 10^3/uL (130-400); RBC 4.42 10^6/uL (3.93-5.22); RDW 14.6 % (11.7-14.6); RDW-SD 40.5 fL; WBC 11.84 10^3/uL (4.4-10.8)
[2025-03-12 15:19] LABS: ALT 12 U/L (10-49); AST 14 U/L (<34); Albumin 3.5 g/dL (3.2-5.0); Alkaline Phosphatase 170 U/L (46-116); Anion Gap 7.8 mmol/L (3-11); BUN 9 mg/dL (9-23); Bilirubin, Total 0.3 mg/dL (0.2-1.2); CO2 22.2 mmol/L (20.0-31.0); Calcium 9.1 mg/dL (8.3-10.6); Chloride 108 mmol/L (98-107); Glucose 89 mg/dL (74-106); Potassium 4.1 mmol/L (3.5-5.1); Sodium 138 mmol/L (136-145); Total Protein 6.6 g/dL (5.7-8.2); Uric Acid 4.5 mg/dL (3.1-7.8)
[2025-03-12 15:37] LABS: Prot/Crea Ur Ratio 0.12 mg/mg Cr
--- NOTE | 2025-03-13 04:41 | W.OBNST ---
Date of service: 03/12/25 Time of Service: 16:00 NST Evaluation Reason for NST Reasons for Nonstress Test: OTHER, SEE COMMENT Reason for NST Other: BMI Gestational Age Gestational Age in Weeks and Days: 38 Weeks and 1Days Test and Monitor Explained Test/Monitor Explained: Test Explained, Monitor Explained and Patient Verbalized Understanding Vital Signs Blood Pressure: 146/65 Pulse: 85 NST Information Date on Monitor: 03/12/25 Time on Monitor: 13:27 Date off Monitor: 03/12/25 Time off Monitor: 14:41 Total Time on Monitor: 74 NST Interventions: PO Hydration NST Evaluation Patient States Movement: Present FHR Baseline: 145 Variability: Moderate 6-25 bpm Accelerations: 15x15 Decelerations: None NST Results: Reactive Note Ultrasound Done: N/A. NST Note Note: BP 146/65 and repeat 132/64. Reactive NST. US today with EFW 84%ile and MAXIMILIAN 15. Preeclampsia labs WNL. Follow up in 1 week and IOL scheduled. NST Reviewed and Verified by: Rosalinda Mcdonald
[2025-03-13 04:43] VITALS: BP 146/65; PULSE 85
== END 2025-03-12 14:55 | disposition home health service (06) ==
LOC: BCD 07:34 → OBS 13:31
PROVIDERS: PCP Nurse Practitioner Family; Visit Provider Advanced Practice Midwife
DX: O99.213 Obesity complicating pregnancy, third trimester (principal); Z3A.38 38 weeks gestation of pregnancy
CPT/HCPCS: 36415; 76816; 80053; 85027; 59025; 82565; 84156; 84550

== ENCOUNTER 2025-03-16 17:51 | Outpatient (CLI) | payer MEDICARE, MEDICAID, SELFPAY ==
[2025-03-16 18:34] VITALS: BP 116/75; PULSE 89; TEMP 36.7
[2025-03-16 18:39] VITALS: BP 116/75; PULSE 89
[2025-03-16 19:41] VITALS: BP 116/75; PULSE 89; TEMP 36.7
--- NOTE | 2025-03-16 19:41 | W.OBNST ---
Date of service: 03/16/25 Time of Service: 19:41 NST Evaluation Reason for NST Reasons for Nonstress Test: DECREASED MOVEMENT Gestational Age Gestational Age in Weeks and Days: 90 Weeks and 6Days Test and Monitor Explained Test/Monitor Explained: Test Explained and Monitor Explained Vital Signs Blood Pressure: 116/75 Pulse: 89 Temperature: 98.1 F Urine Results Urine Protein: Negative Urine Ketones: Negative Urine Glucose: Negative Urine Blood: Negative NST Information Date on Monitor: 03/16/25 Time on Monitor: 18:35 Date off Monitor: 03/16/25 Time off Monitor: 19:06 Total Time on Monitor: 31 NST Interventions: PO Hydration NST Evaluation Patient States Movement: Present FHR Baseline: 130 Variability: Moderate 6-25 bpm Accelerations: 15x15 Decelerations: None NST Results: Reactive Note Ultrasound Done: N/A. NST Note NST Reviewed and Verified by: Ngoc Ennis
== END 2025-03-16 19:08 ==
LOC: BCD 17:53 → OBS 18:29
PROVIDERS: PCP Nurse Practitioner Family; Visit Provider Advanced Practice Midwife
DX: O36.8131 Decreased fetal movements, third trimester, fetus 1 (principal); Z3A.38 38 weeks gestation of pregnancy
CPT/HCPCS: 59025